=== PATIENT | female | born 1950 | race Caucasian/White ===

== ENCOUNTER 2016-06-28 15:10 | Day surgery (SDC) | payer MEDICARE, MEDICAID ==
[2012-12-02 15:24] VITALS: BP 110/60
[~2016-06-28 15:10] MED LIST: NORMAL SALINE 1,000 ML IV ONE; NORMAL SALINE 1,000 ML IV PRN
--- NOTE | 2016-06-28 15:23 | OR ---
Operative Report - Dictated Report Narrative: Location: Main OR Anesthesia: General Surgeon: Dr. 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 Bladder tumor Procedure: #1 Cystoscopy with bladder washing for cytology and Bilateral retrograde pyelograms #2 cold cut biopsy of apparent bladder tumor, multifocal Indications: 66-year-old female with worsening creatinine and new right hydroureteronephrosis seen on ultrasound. Discussed options and elected to proceed with above-mentioned procedure to investigate cause of obstruction and potentially treat. Description: Consent obtained. Patient brought to the operating room where general endotracheal anesthesia was induced. Placed in the dorsal lithotomy position. Prepped and draped. Timeout taken. Rigid cystoscope introduced into the bladder. Residual is negligible, patient empties well. Richardson cystoscopy revealed no evidence of infection however patient has multifocal what appears to be low-grade TCC in several areas. Total surface area is well over 5 cm but it is not bulky tumor. Mainly on the right side. Bilateral retrogrades obtained and interpreted by Dr. Fuller. Left ureter identified intubated with 5 Belgian catheter and left retrograde obtained. 10 mL of Isovue were used to obtain retrograde. Distal mid and proximal ureter were delicate without filling defects or hydronephrosis. At the level of the UPJ there is an obvious jet consistent with congenital UPJ obstruction. Left renal pelvis capacious/slightly dilated with mild hydronephrosis but there is preservation of the calyces. Upon removal of catheter there is delayed drainage through the UPJ. This side was not as significant in terms of the dilation as the opposite side but I do think this is a congenital UPJ. There were no filling defects. Right ureter identified intubated with 5 Belgian catheter and right retrograde obtained. 10 mL's of Isovue were used to obtain retrograde. Distal mid proximal ureter delicate without filling defects or hydronephrosis. Similar jet present on this side indicative of likely UPJ obstruction. Hydronephrosis on this side moderate to severe. There is still some calyceal preservation but there is some blunting. There was contrast hang up again on this side. No obvious filling defects but based on volume of collecting system would be hard to see subtle filling defect on this side secondary to the UPJ. Attention was turned back to the bladder. Cold cut forceps were brought in and I biopsied one of the lesions and sent to pathology. Ideally I would've placed the right stent at this point however with the possibility of bladder cancer and no evidence of upper tract disease at this time I felt delaying stenting would be okay and preferred to not see the upper tracts. Specimen: Bladder washing for cytology. Bladder biopsy EBL: 5 ml Condition: tolerated procedure Important findings: Bilateral UPJ's suspect clinically significant right worse than left. Multifocal apparent low grade bladder cancer post biopsy. Follow-up: My plan is to obtain a MAG3 Lasix renal scan to truly document if obstructed or partially obstructed. We'll follow up with pathology but bladder cancer needs to be treated first via TURBT and intravesical chemotherapy. After that can consider stenting or more aggressive options for the bilateral UPJs versus conservative if there is no high-grade obstruction and patient prefers.
== END 2016-06-28 15:11 | disposition home or self-care (01) ==
LOC: AMB 15:10
PROVIDERS: ATTEND Urology
PROC: 0TBB8ZX Excision of Bladder, Via Natural or Artificial Opening Endoscopic, Diagnostic (ICD-10-PCS; 2016-06-28)
PROC: BT14ZZZ Fluoroscopy of Kidneys, Ureters and Bladder (ICD-10-PCS; 2016-06-28)
PROC: 3E1K88X Irrigation of Genitourinary Tract using Irrigating Substance, Via Natural or Artificial Opening Endoscopic, Diagnostic (ICD-10-PCS; 2016-06-28)
PROC: 0TBB8ZX Excision of Bladder, Via Natural or Artificial Opening Endoscopic, Diagnostic (ICD-10-PCS; principal; 2016-06-28 15:10)
DX: C67.9 Malignant neoplasm of bladder, unspecified (principal); N13.5 Crossing vessel and stricture of ureter without hydronephrosis; I13.0 Hypertensive heart and chronic kidney disease with heart failure and stage 1 through stage 4 chronic kidney disease, or unspecified chronic kidney disease; I50.30 Unspecified diastolic (congestive) heart failure; N18.3 Chronic kidney disease, stage 3 (moderate); D63.1 Anemia in chronic kidney disease; E78.5 Hyperlipidemia, unspecified; E03.9 Hypothyroidism, unspecified; K21.9 Gastro-esophageal reflux disease without esophagitis; F17.210 Nicotine dependence, cigarettes, uncomplicated; Z68.28 Body mass index [BMI] 28.0-28.9, adult

== ENCOUNTER 2016-07-12 12:23 | Day surgery (SDC) | payer MEDICARE, MEDICAID ==
[~2016-07-12 12:23] MED LIST changes: +DOXORUBICIN HCL IR PRN; +DOXORUBICIN HCL IV PRN; +METOCLOPRAMIDE HCL 5 MG/ML VIAL IV PRN; +MORPHINE SULFATE 2 MG/ML DISP.SYRIN IV PRN; -NORMAL SALINE 1,000 ML IV ONE; +ONDANSETRON HCL/PF 2 MG/ML VIAL IV PRN; +WATER FOR INJECTION STERILE IR PRN; +oxyCODONE HCL/ACETAMINOPHEN 1 TAB TABLET PO PRN
--- OUTSIDE RECORDS SUMMARY | 2016-07-12 12:27 | XMS REPORT | Continuity of Care Document ---
:1950 Author Organization [facility] ([facility]) Address [address] [place] [address] Phone [phone] Care Team Providers Name Role Phone Flaquito Henson Primary Care Provider [phone] Source Comments This disclosure is being made pursuant to the Care Everywhere program, applicable federal and state laws, and may not contain all informaitonavailable regarding this patient.[facility] ([facility]) Active Allergies and Adverse Reactions Allergen Noted Date Severity Reactions Comments Iodine Respiratory Distress,Urticaria (Hives) Penicillins Urticaria (Hives) Current Medications Not on file Active Problems Problem Noted Date Unspecified hypothyroidism 08/23/2000 Most Recent Encounters Date Type Specialty Providers Description 05/16/2016 Office Visit Orthopaedic Javier Harley MD Chief Comp: Patient Reported Reason For Visit Social History Tobacco Use Types Packs/Day Years Used Date Never Assessed Last Filed Vital Signs Vital Sign Reading Time Taken Blood Pressure 127/64 06/24/2005 12:00 PM 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 Pulse 64 06/24/2005 12:00 PM 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 Temperature 36.4 C (97.52 F) 06/24/2005 12:00 PM 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 Respiratory Rate 16 06/24/2005 12:00 PM 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 Height - - Weight 96.798 kg (213 lb 6.4 oz) 08/23/2000 9:36 AM 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 Body Mass Index - - Oxygen Saturation - - Plan of Care Date Type Specialty Providers Description 08/01/2016 Wait List Orthopaedic 08/01/2016 Appointment Orthopaedic Javier Harley MD [address] [place] [address] [phone] (Fax) Chief Comp: Patient Estela Le MD [address] [place] [address] [phone] (Fax) Reported Reason For Visit Health Maintenance Due Date Last Done Comments HCV Screening 1950 Hepatitis B Vaccine (1 of 3 - Primary 1950 Series) Tdap Vaccine 1961 Td Vaccine 02/15/1968 Colonoscopy 2000 Mammogram 08/23/2001 08/23/2000 Lipid Disorder Screening 01/25/2005 01/26/2000, 11/09/1999 Zoster Vaccine 2010 Osteoporosis Screening (DXA Bone Density) 2015 Pneumococcal Vaccine (1 of 2 - PCV13) 2015 Influenza Vaccine: Seasonal (#1) 12/27/2015 Results from Last 3 Months Not on file
--- OUTSIDE RECORDS SUMMARY | 2016-07-12 12:27 | XMS REPORT | Summary of Care ---
:1950 Author Organization [facility] Address [address] [place] [address] Care Team Providers Name Role Phone Jason Catalan Primary Care Physician Encounter Date(s): 06/28/16 - 06/28/16 [facility], [address] [place], [place] [address] Discharge Diagnosis: CKD stage 3 Discharge Diagnosis: Other hydronephrosis Discharge Disposition: 01 Discharged to Home or Self Care Attending Physician: Emmanuel Fuller MD Referring Physician: NOE Canada Vital Signs Most recent to oldest [Reference Range]: 1 Blood Pressure [90-130/60-90 mmHg] 148/78mmHg *HI* (06/28/16 12:37 PM) Mean Arterial Pressure, Cuff 101 mmHg (06/28/16 12:37 PM) Most recent to oldest [Reference Range]: 1 Height/Length Measured 173 cm (06/28/16 12:37 PM) Weight Dosing 86 kg (06/28/16 12:37 PM) Problem List Condition Effective Dates Status Health Status Informant Anemia(Confirmed) Active Anemia of chronic renal Active failure(Confirmed) B12 deficiency(Confirmed) Active CFS (chronic fatigue Active syndrome)(Confirmed) Chronic low back pain(Confirmed) Active CKD stage 3(Confirmed) Active Depression(Confirmed) Active Diastolic heart failure(Confirmed) Active Edema(Confirmed) Active Fibromyalgia(Confirmed) Active GERD - Gastro-esophageal reflux Active disease(Confirmed) Other hydronephrosis(Confirmed) Active Hyperlipidemia(Confirmed) Active Hypertension(Confirmed) Active Hypokalemia(Confirmed) Active Hypothyroidism(Confirmed) Active 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) Narcolepsy(Confirmed) Active Osteoarthritis(Confirmed) Active Chronic leg pain(Confirmed) Active Peripheral neuropathy(Confirmed) Active Allergies, Adverse Reactions, Alerts Substance Reaction Severity Status contrast media (iodine-based) Anaphylactic reaction Active penicillin rash Active Medications cefuroxime 500 mg oral tablet 1 tab(s), Oral, BID, # 28 tab(s), 0 Refill(s), Start Date: 06/28/16 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:00 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 Start Date: 06/28/16 Stop Date: 07/12/16 Status: Orderedcholecalciferol 1000 intl units oral tablet 1 tab(s), Oral, Daily, # 30 tab(s), 6 Refill(s), Start Date: 09/09/15 14:55:00 CDT, Pharmacy: [facility],[place], [place] Start Date: 09/09/15 Status: OrderedClaritin 10 mg oral tablet 1 tab(s), Oral, Daily, # 7 tab(s), 0 Refill(s), Start Date: 11/03/14 16:18:00 CDT Start Date: 11/03/14 Stop Date: 11/10/14 Status: Orderedcyanocobalamin 1000 mcg/mL injectable solution 1 mL, IM, qMonth, # 30 mL, 0 Refill(s), Start Date: 11/03/14 16:18:00 CDT Start Date: 11/03/14 Status: OrderedCymbalta 60 mg oral delayed release capsule 1 cap(s), Oral, Daily, do not crush or chew, 0 Refill(s), Start Date: 11/03/14 16:19:00 CDT Special Instructions: do not crush or chew Start Date: 11/03/14 Stop Date: 03/07/16 Status: Completedcyproheptadine mg, Oral, TID, 0 Refill(s), Start Date: 11/03/14 16:19:00 CDT Start Date: 11/03/14 Status: Ordereddiazepam 5 mg oral tablet 1 tab(s), Oral, BID, 0 Refill(s), Start Date: 11/03/14 16:20:00 CDT Start Date: 11/03/14 Stop Date: 09/09/15 Status: Discontinuedferrous sulfate 325 mg (65 mg elemental iron) oral tablet 1 tab(s), Oral, BID, # 60 tab(s), 5 Refill(s), Start Date: 07/26/15 8:39:32 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 , Pharmacy: [place], [place] Start Date: 07/26/15 Status: Orderedferrous sulfate 325 mg (65 mg elemental iron) oral tablet 1 tab(s), Oral, BID, # 60 tab(s), 5 Refill(s), Start Date: 02/02/15 16:13:00 CDT , Pharmacy: [place], [place] Start Date: 02/02/15 Stop Date: 07/26/15 Status: Completedfolic acid 1 mg oral tablet 1 tab(s), Oral, Daily, # 30 tab(s), 0 Refill(s), Start Date: 11/03/14 16:20:00 CDT Start Date: 11/03/14 Status: OrderedLasix 80 mg oral tablet 1 tab(s), Oral, BID, # 30 tab(s), 0 Refill(s), Start Date: 11/03/14 16:20:00 CDT Start Date: 11/03/14 Status: Orderedlevothyroxine 75 mcg (0.075 mg) oral tablet 1 tab(s), Oral, Daily, # 30 tab(s), 0 Refill(s), Start Date: 11/03/14 16:21:00 CDT Start Date: 11/03/14 Status: OrderedLidoderm 5% topical film patch(es), Topical, Daily, 0 Refill(s), Start Date: 11/03/14 16:21:00 CDT Start Date: 11/03/14 Status: OrderedLipitor 20 mg oral tablet 1 tab(s), Oral, Daily, # 30 tab(s), 0 Refill(s), Start Date: 11/03/14 16:21:00 CDT Start Date: 11/03/14 Stop Date: 03/07/16 Status: CompletedLyrica 150 mg oral capsule 1 cap(s), Oral, BID, 0 Refill(s), Start Date: 11/03/14 16:21:00 CDT Start Date: 11/03/14 Status: OrderedNasonex 50 mcg/inh nasal spray 2 spray(s), Nasal, Daily, # 17 gm, 0 Refill(s), Start Date: 11/03/14 16:22:00 CDT Start Date: 11/03/14 Status: Orderedpantoprazole 40 mg oral delayed release tablet 1 tab(s), Oral, Daily, # 30 tab(s), 0 Refill(s), Start Date: 11/03/14 16:22:00 CDT Start Date: 11/03/14 Status: OrderedPercocet 5/325 oral tablet See Instructions, Take 1 tab by mouth 1 hour prior to Bone Marrow biopsy. May repeat x1 later in day if needed.l, # 2 tab(s), 0 Refill(s), Start Date: 14:54:00 CDT Special Instructions: Take 1 tab by mouth 1 hour prior to Bone Marrow biopsy. May repeat x1 later in day if needed.l Start Date: 11/25/14 Stop Date: 03/07/16 Status: Completedphentermine 37.5 mg oral tablet 1 tab(s), Oral, Daily, 0 Refill(s), Start Date: 11/03/14 16:22:00 CDT Start Date: 11/03/14 Status: Orderedpotassium chloride 20 mEq oral tablet, extended release 1 tab(s), Oral, TID, 0 Refill(s), Start Date: 11/03/14 16:24:00 CDT Start Date: 11/03/14 Status: OrderedProvigil 200 mg oral tablet 1 tab(s), Oral, qAM, # 30 tab(s), 0 Refill(s), Start Date: 11/03/14 16:24:00 CDT Start Date: 11/03/14 Status: OrderedSingulair 10 mg oral tablet 1 tab(s), Oral, qPM, # 30 tab(s), 0 Refill(s), Start Date: 11/03/14 16:25:00 CDT Start Date: 11/03/14 Status: OrderedTemovate 0.05% topical cream 1 rasta, Topical, BID, # 15 gm, 0 Refill(s), Start Date: 11/03/14 16:25:00 CDT Start Date: 11/03/14 Status: OrderedToviaz 8 mg oral tablet, extended release tab(s), Oral, Daily, 0 Refill(s), Start Date: 11/03/14 16:25:00 CDT Start Date: 11/03/14 Stop Date: 03/07/16 Status: CompletedtraMADol 50 mg oral tablet 2 tab(s), Oral, q12hr, PRN for pain, # 60 tab(s), 0 Refill(s), Start Date: 11/03 16:25:00 CDT Start Date: 11/03/14 Status: Orderedtriamcinolone 55 mcg/inh nasal spray 2 spray(s), Nasal, Daily, # 10 gm, 0 Refill(s), Start Date: 11/03/14 16:25:00 CDT Start Date: 11/03/14 Stop Date: 03/07/16 Status: CompletedTriCor 145 mg oral tablet 1 tab(s), Oral, Daily, # 30 tab(s), 0 Refill(s), Start Date: 11/03/14 16:26:00 CDT Start Date: 11/03/14 Status: OrderedVESIcare 10 mg oral tablet 1 tab(s), Oral, Daily, # 30 tab(s), 0 Refill(s), Start Date: 03/07/16 14:42:00 CDT Start Date: 03/07/16 Status: OrderedXanax 0.25 mg oral tablet See Instructions, Take 1 tablet by mouth 1 hour prior to Bone marrow biopsy., # 1 tab(s), 0 Refill(s), Start Date: 11/25/14 14:54:00 CDT Special Instructions: Take 1 tablet by mouth 1 hour prior to Bone marrow biopsy. Start Date: 11/25/14 Stop Date: 09/09/15 Status: Discontinued Results No data available for this section Immunizations No data available for this section Procedures Procedure Date Related Diagnosis Body Site Colonoscopy 03/04/12 Esophagogastroduodenoscopy 03/04/12 Arthroscopic knee operation1 11/13/06 Cataract surgery 2005 Tubal ligation 1979 Complete salpingo-oophorectomy 1972 Cholecystectomy Reattachment of retina 1BILATERAL Social History No data available for this section Assessment and Plan No data available for this section
--- OUTSIDE RECORDS SUMMARY | 2016-07-12 12:28 | XMS REPORT | Summary of Care ---
:1950 Author Organization [facility] Address [address] [place] [address] Care Team Providers Name Role Phone Jason Catalan Primary Care Physician Encounter Date(s): 06/28/16 - 06/28/16 [facility], [address] [place], [place] [address] Discharge Disposition: 01 Discharged to Home or Self Care Attending Physician: Emmanuel Fuller MD Referring Physician: Emmanuel Fuller MD Vital Signs No data available for this section Problem List Condition Effective Dates Status Health [...] tab(s), 0 Refill(s), Start Date: 06/28/16 12:45:00 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 Start Date: 06/28/16 Stop Date: 07/12/16 Status: Orderedcholecalciferol 1000 intl units oral tablet 1 tab(s), Oral, Daily, # 30 tab(s), 6 Refill(s), Start Date: 09/09/15 14:55:00 CDT, Pharmacy: [facility] [place], [place] Start Date: 09/09/15 Status: OrderedClaritin 10 [...] tab(s), 5 Refill(s), Start Date: 07/26/15 8:39:32 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 , Pharmacy: [facility] [place], [place] Start Date: 07/26/15 Status: Orderedferrous sulfate 325 mg (65 mg elemental iron) oral tablet 1 tab(s), Oral, BID, # 60 tab(s), 5 Refill(s), Start Date: 02/02/15 16:13:00 CDT , Pharmacy: [facility] [place], [place] Start Date: 02/02/15 Stop Date: 07/26/15 [...]
[2016-07-12] MEDS ORDERED: NORMAL SALINE 1,000 ML IV ONE (13:39)
--- NOTE | 2016-07-12 15:09 | OR ---
Operative Report - Dictated Report Narrative: Location: Main OR Anesthesia: General Preoperative diagnosis: Multifocal bladder cancer Postoperative diagnosis: same Procedure: #1 TURBT Large >5cm #2 Insertion of geronimo catheter Indications: 66-year-old female with acute renal failure discovered to have bilateral hydronephrosis with suspicion of bilateral UPJs confirmed with MAG3 Lasix renal scan to be clinically significant who during cystoscopic investigation was noticed to have multifocal low-grade appearing bladder cancer. Biopsy confirms TA G1 bladder cancer involving significant portion of right lateral wall of the bladder. Not big and bulky but definitely multifocal and superficial. Presents today for resection and potential intravesical chemotherapy. Description: Informed consent obtained. Risks and benefits discussed. Patient brought to the operating room where general endotracheal anesthesia was induced. Placed in the dorsal lithotomy position. Prepped and draped. Timeout taken per protocol. Scope introduced and navigated towards the bladder. Tumor involved right lateral wall extending above the ureteric orifice but lateral to , multiple small heaped up areas with other field/mucosal change in her spurs throughout. It extended distally to just about the bladder neck. There is no big bulky tumor but total surface area well over 5 cm in definite multi focality. Some of it is very difficult to see. Resectoscope was brought in and resection was carried out. There is not a lot of tissue and a lot of the surgery was performed using vaporization with the loop although I did resect some tissue. Near the ureter care was taken to use minimal cautery. Ureter itself on the right is not involved with the tumor does get close. Hemostasis was ensured and chips were evacuated. Final inspection of entire bladder revealed no remaining abnormal tissue. All visible tumor gone. I went ahead and fulgurated additional mucosa that was located in between multifocal tumor as I do believe the superficial mucosa is involved almost CIS-like. EBL: 0 cc Specimen: Resected bladder tumor Condition: tolerated Important findings: Multifocal low-grade appearing small bulk bladder cancer. No involvement of the right ureteric orifice. I will assess patient in recovery for intravesical Adriamycin/mitomycin. FOLLOW UP: She will see me next week. Need to figure out what the best route is for her bilateral UPJs as I do believe they are clinically significant based on her underlying renal impairment, occasional symptomatology and MAG3 Lasix renal scan.
--- NOTE | 2016-07-12 15:11 | PROC NOTE ---
ED Procedures - Additional Procedures Progress: Location: Recovery Anesthesia: None Preoperative diagnosis: Bladder cancer Postoperative diagnosis: Same Procedure: Intravesical instillation of Adriamycin per protocol Indications: 66-year-old female with multifocal TCC biopsy proven. She is post resection. Abdominal exam negative. Urine pretty clear. Intravesical chemotherapy indicated to decrease risk of implantation and help prevent recurrence. Description: Abdominal exam benign. Urine was clear. Addy syringe was used to introduce Adriamycin. Catheter clamped. She will undergo 45-60 minute dwell time followed by rinsed per protocol followed by removal of catheter.
[2016-07-12 18:49] VITALS: BP 111/70
== END 2016-07-12 12:24 | disposition home or self-care (01) ==
LOC: AMB 12:23
PROVIDERS: ATTEND Urology
PROC: 0TBB8ZX Excision of Bladder, Via Natural or Artificial Opening Endoscopic, Diagnostic (ICD-10-PCS; principal; 2016-07-12 14:15)
DX: C67.2 Malignant neoplasm of lateral wall of bladder (principal); I13.0 Hypertensive heart and chronic kidney disease with heart failure and stage 1 through stage 4 chronic kidney disease, or unspecified chronic kidney disease; N18.3 Chronic kidney disease, stage 3 (moderate); I50.30 Unspecified diastolic (congestive) heart failure; E03.9 Hypothyroidism, unspecified; D63.1 Anemia in chronic kidney disease; K21.9 Gastro-esophageal reflux disease without esophagitis; F32.9 Major depressive disorder, single episode, unspecified; F17.210 Nicotine dependence, cigarettes, uncomplicated; Z68.28 Body mass index [BMI] 28.0-28.9, adult
CPT/HCPCS: 52240; 88305; J9000

== ENCOUNTER 2016-10-04 12:07 | Day surgery (SDC) | payer MEDICARE, MEDICAID ==
[~2016-10-04 12:07] MED LIST changes: -DOXORUBICIN HCL IR PRN; -DOXORUBICIN HCL IV PRN; +OXYBUTYNIN CHLORIDE 5 MG TABLET PO PRN; -WATER FOR INJECTION STERILE IR PRN
--- OUTSIDE RECORDS SUMMARY | 2016-10-04 12:11 | XMS REPORT | Continuity of Care Document ---
:1950 Author Organization [facility] ([facility]) Address [address] [place] [address] Phone [phone] Care Team Providers Name Role Phone Flaquito Henson Primary Care Provider [phone] Source Comments This disclosure is being made pursuant to the Care Everywhere program, applicable federal and state laws, and may not contain all informaitonavailable regarding this patient.[facility] ([facility]) Active Allergies and Adverse Reactions Allergen Noted Date Severity Reactions Comments Iodine Respiratory Distress,Urticaria (Hives) Penicillins Urticaria (Hives) Current Medications Not on file Active Problems Problem Noted Date Unspecified hypothyroidism 08/23/2000 Most Recent Encounters Date Type Specialty Providers Description 08/01/2016 Office Visit Orthopaedic Javier Harley MD Chief Comp: Patient Estela Le MD Reported Reason For Visit Social History Tobacco Use Types Packs/Day Years Used Date Never Assessed Last Filed Vital Signs Vital Sign Reading Time Taken Blood Pressure 127/64 06/24/2005 12:00 PM CAPTAIN/CHECK AIRMAN Pulse 64 06/24/2005 12:00 PM CAPTAIN/CHECK AIRMAN Temperature 36.4 C (97.52 F) 06/24/2005 12:00 PM CAPTAIN/CHECK AIRMAN Respiratory Rate 16 06/24/2005 12:00 PM CAPTAIN/CHECK AIRMAN Height - - Weight 96.798 kg (213 lb 6.4 oz) 08/23/2000 9:36 AM CAPTAIN/CHECK AIRMAN Body Mass Index - - Oxygen Saturation - - Plan of Care Health Maintenance Due Date Last Done Comments [...]
--- NOTE | 2016-10-04 14:13 | OR ---
Operative Report - Dictated Report Narrative: Location: Main OR Anesthesia: Mac/IV sedation Surgeon: Dr. 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 Practically healed bladder with the exception of one area that had a white fibrinous material. Bilateral retrogrades consistent with bilateral UPJ. Right retrograde very abnormal on injection with filling defect type appearance that looked like multiple stones piled up at the level of the UPJ however patient had prior CT without stones. Abnormality did not persist once I had the yellow catheter up above the UPJ and continued with the retrograde. Not sure what to make of it. Procedure: #1 Cystoscopy with bladder washing for cytology and culture. #2 Bilateral retrograde pyelograms with placement of left 6 by multi length and right 5 by multi length double-J stents #3 cold cut biopsy of abnormal bladder lesion/prior resection site Indications: 66-year-old female with chronic back pain discovered to have bilateral hydronephrosis however on cystoscopy also had multifocal TA G1 bladder cancer. Patient underwent successful resection followed by induction BCG. 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 Prior renal scan was consistent with high grade obstruction however renal function is impaired making interpretation a little tricky Description: Consent obtained. Patient brought to the operating room where Vincent was induced. Placed in the dorsal lithotomy position. Prepped and draped. Timeout taken. Rigid cystoscope introduced into the bladder with ease and quick cystoscopy revealed no recurrent tumor, stone or suspicious lesions. There was a little area of white fluff which is not uncommon with healing after resection. Washing was obtained sent for cytology and culture. Bilateral retrogrades obtained and interpreted by Dr. Fuller. Left ureter identified intubated with 5 Mongolian catheter and left retrograde obtained. Distal mid and proximal ureter delicate without hydronephrosis or filling defects. UPJ with classic jet followed by hydronephrotic left kidney with some blunting of the calyces.. There were no filling defects. Solo wire advanced all the way up to the kidney without incident. Over the scope 6 by multi length double-J stent introduced however ureteral caliber such that it was snug all the way up. With slow constant pressure, wire on tension and scope over the ureter I was able to get the stent to curl proximally and successfully deployed the stent. Right ureter identified intubated with 5 Mongolian catheter and right retrograde obtained. Distal, mid and proximal ureter delicate without filling defects. On this side the UPJ was much tighter with a much tighter jet and a very abnormal filling defect type appearance as the contrast navigated and what appeared to be a hydronephrotic collecting system. It truthfully looked like a collection of small stones however on prior CT no stones present. I advanced the wire past this area into the kidney and then advanced the [address] all the way up. I aspirated urine it was clear and not consistent with infection and I injected a bunch more contrast but could not re-create that appearance that I saw with the 5 Mongolian catheter below the UPJ. I pulled the 5 Mongolian catheter below the UPJ again injected and saw similar filling defect type appearance. Not sure as to clinical significance but I do have some concern. Given how snug the 6 Mongolian stent was on the opposite side I elected to place a 5 by multi length stent which was done after the Solo wire was replaced. Both stents were appropriately position confirmed on fluoroscopy. 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 Attention was turned back to the bladder to the area where the fibrinous material was. I removed that using cold cut forceps and underneath the mucosa looked okay but not as normal as the rest of the bladder. Given the prior multifocal nature of her TCC I elected to obtain a couple biopsies in that area and sent those to pathology to ensure no recurrent cancer. Specimen: Washing for cytology and culture. Cold cut biopsy of bladder lesion EBL: 0 ml Condition: tolerated procedure Important findings: Bilateral UPJs. Very abnormal filling defect on the right. Successful stenting. Well-healed bladder without obvious recurrence from a TCC standpoint. Biopsies and washings to confirm. Follow-up: One week with ultrasound, UA and creatinine.
[2016-10-04 15:30] VITALS: BP 148/72
== END 2016-10-04 12:08 | disposition home or self-care (01) ==
LOC: AMB 12:07
PROVIDERS: ATTEND Urology
PROC: 0T788DZ Dilation of Bilateral Ureters with Intraluminal Device, Via Natural or Artificial Opening Endoscopic (ICD-10-PCS; 2016-10-04)
PROC: 0TBB8ZX Excision of Bladder, Via Natural or Artificial Opening Endoscopic, Diagnostic (ICD-10-PCS; 2016-10-04)
PROC: 0WHR8YZ Insertion of Other Device into Genitourinary Tract, Via Natural or Artificial Opening Endoscopic (ICD-10-PCS; 2016-10-04)
PROC: BT14ZZZ Fluoroscopy of Kidneys, Ureters and Bladder (ICD-10-PCS; 2016-10-04)
PROC: 0TBB8ZX Excision of Bladder, Via Natural or Artificial Opening Endoscopic, Diagnostic (ICD-10-PCS; principal; 2016-10-04 13:20)
DX: N13.30 Unspecified hydronephrosis (principal); I13.0 Hypertensive heart and chronic kidney disease with heart failure and stage 1 through stage 4 chronic kidney disease, or unspecified chronic kidney disease; N18.3 Chronic kidney disease, stage 3 (moderate); I50.30 Unspecified diastolic (congestive) heart failure; D63.1 Anemia in chronic kidney disease; K21.9 Gastro-esophageal reflux disease without esophagitis; M79.7 Fibromyalgia; E78.5 Hyperlipidemia, unspecified; E03.9 Hypothyroidism, unspecified; F17.210 Nicotine dependence, cigarettes, uncomplicated; Z85.51 Personal history of malignant neoplasm of bladder; Z68.28 Body mass index [BMI] 28.0-28.9, adult

== ENCOUNTER 2016-12-05 16:43 | Observation (INO) | payer MEDICARE, MEDICAID ==
--- NOTE | 2016-12-05 17:14 | ERNOTE ---
Medical Problem HPI - General Chief Complaint: General Assessment Time Seen by Provider: 12/05/16 16:45 Source: patient Exam Limitations: no limitations - Immun/Allergies/Home Medications Immunizations: IMMUNIZATION HX Immunizations Up to Date Yes History of Influenza Vaccine Yes Hx Pneumococcal Vaccination Yes Allergies/Adverse Reactions: Allergies Iodinated Contrast Media - Oral and [Iodinated Contrast Media - IV Dye] Allergy (Severe, Verified 10/04/16 12:46) Anaphylaxis Penicillins Adverse Reaction (Mild, Verified 10/04/16 12:46) RASH Home Medications: HOME MEDICATIONS Cholecalciferol [Vitamin D] 1,000 unit PO DAILY 06/27/16 [Last Taken Unknown] Cyanocobalamin (Vitamin B-12) [B-12 Kit] 1,000 mcg IJ Q30D 06/27/16 [Last Taken Unknown] Ferrous Sulfate [Iron] 325 mg PO BID 06/27/16 [Last Taken Unknown] Furosemide [Lasix] 160 mg PO BID 06/27/16 [Last Taken Unknown] Levothyroxine Sodium [Synthroid] 75 mcg PO DAILY 06/27/16 [Last Taken 10/04/16] Loratadine [Claritin] 10 mg PO DAILY 06/27/16 [Last Taken Unknown] Modafinil [Provigil] 200 mg PO QAM 06/27/16 [Last Taken Unknown] Mometasone Furoate [Nasonex] 2 spray NS DAILY 06/27/16 [Last Taken Unknown] Montelukast Sodium [Singulair] 10 mg PO QPM 06/27/16 [Last Taken Unknown] Pantoprazole Sodium 40 mg PO DAILY 06/27/16 [Last Taken Unknown] Phentermine HCl [Adipex-P] 37.5 mg PO DAILY 06/27/16 [Last Taken Unknown] Pregabalin [Lyrica] 150 mg PO BID 06/27/16 [Last Taken Unknown] Solifenacin Succinate [Vesicare] 10 mg PO DAILY 06/27/16 [Last Taken Unknown] traMADol HCL [Ultram] 100 mg PO Q12H PRN 07/03/16 [Last Taken Unknown] Calcitriol [Rocaltrol] 0.25 mcg PO DAILY 10/03/16 [Last Taken Unknown] Fenofibrate Nanocrystallized [Tricor] 145 mg PO DAILY 10/03/16 [Last Taken Unknown] Folic Acid 2 mg PO DAILY 10/03/16 [Last Taken Unknown] Potassium Chloride [K-Dur] 20 meq PO TID 10/03/16 [Last Taken Unknown] Clotrimazole [Itch Relief] 15 gm TP DAILY 12/05/16 [Last Taken Unknown] Spironolact/Hydrochlorothiazid [Aldactazide 50-50 Tablet] 0.5 each PO DAILY 04/13 [Last Taken Unknown] - History of Present History Narrative: Patient has a history of multifocal bladder cancer post resection and chemotherapy. Patient was found to have bilateral hydronephrosis which was treated with bilateral stent placement, follow up renal scan did not show any improvement of the hydronephrosis and patient was referred to the [facility] nephrology. She was seen there on 12/01/16 and preprocedure labs showed a hemoglobin of 5.9. Patient was called and told to go to ER. PAtient has been lightheaded and fatigued, denies chest pain or syncope. She has a history of anemia, has not needed any transfusion in years. She denies any bleeding or dark stools Review of Systems - Review of Systems Constitutional: Present: fatigue, malaise. Absent: fever, chills EYE: Absent: eye pain ENT: Absent: sore throat Respiratory: Present: shortness of breath - 'only when I hurry' Cardiology: Absent: chest pain Gastrointestinal/Abdominal: Absent: nausea, vomiting, abdominal pain Genitourinary: Present: no symptoms reported Neurological: Present: weakness - generalized. Absent: headache Hematologic/Lymphatic: Absent: easy bleeding - Patient's Past Medical History Patient History - Medical: Anemia, Anxiety, Arthritis, Chronic Pain, Depression , Fibromyalgia, GERD, Hypothyroidism, Osteoarthritis, Renal Disease, Other Patient History - Cardiac/Respiratory: Hyperlipidemia Patient History - Cancer: Bladder, Chemotherapy history Patient History - Surgical Procedures: Cancer Surgery, Cataracts, Cholecystectomy, Colonoscopy, EGD, Tubal Ligation, T & A, Other, Orthopedic, Urology Patient History - Other: None LMP (females 10-50): Menopausal - Family History Mother Family History - Medical: Diabetes Type 2 Family History - Cardiac/Respiratory: No pertinent hx Family History - Cancer: No pertinent family hx Father Family History - Medical: , No pertinent hx Family History - Cardiac/Respiratory: CHF Family History - Cancer: Bladder - Social History Living Situations: home Abuse History: No History of abuse Psych History: Hx of Anxiety, Hx of Depression, Current tx/ever been on anti- depressants or anti-anxiety meds Smoking Status: Current every day smoker Cigarettes Packs Per Day: 1 Have you smoked in the past 12 months: Yes Do you dip or chew tobacco: No Patient requests Smoking Cessation Consult: No Initiate information on Smoking Cessation: No Alcohol Use: none Drug Use: none - Immunizations Immunizations Up to Date: Yes Hx Pneumococcal Vaccination: Yes History of Influenza Vaccine: Yes Physical Exam - Physical Exam General Appearance: Present: wd/wn, alert, no apparent distress Head Exam: Present: normal inspection Eye Exam: Normal inspection: bilateral, PERRL: bilateral Ears, Nose, Throat: Present: normal ENT inspection, other - pale mucus membranes Respiratory: Present: no respiratory distress, normal breath sounds, no accessory muscle use, lungs clear Cardiovascular/Chest: Present: regular rate, rhythm Gastrointestinal/Abdominal: Present: nontender, nondistended, soft Extremity Exam: Present: pedal edema - chronic, wearing zip up compression stockings Neurological Exam: Present: alert, oriented, normal mood/affect Skin Exam: Present: warm/dry, pallor ED Progress - Vital Signs Patient's Vital Signs:: I have reviewed the patient's vital signs. Vital Signs: Vital Signs 12/05/16 16:46 Temperature 36.6 C Pulse Rate 90 Respiratory 12 Rate Blood Pressure 137/51 O2 Sat by Pulse 97 Oximetry - Progress/Reassessment Chief Complaint: General Assessment Progress Note-Subjective: 12/05/16 18:00 discussed results with patient, recommended admission for transfusion, patient possibly has CHF (though she denies history) as she is taking high dose lasix, will need slow transfusion and lasix in between, BUN/ Creat stable elevated 12/05/16 18:[address] Henson, jaydenay to admit for observation to transfuse, give lasix after first dose Departure - Departure Clinical Impression: Severe anemia Disposition: [facility] Condition: Good
[2016-12-05 17:24] LABS: Mean Cell Volume 99.4 fl (78-100); Mean Corpuscular Hemoglobin 31.7 pg (27-31); Mean Corpuscular Hgb Conc 31.9 g/dl (32-36); Mean Platelet Volume 12.2 fl (6.0-9.5); Neutrophil # 2.3 K/mm3 (1.3-6.0); Neutrophil % 58.2 % (42-75.0); Platelet Count 140 K/mm3 (150-450); Red Blood Count 1.64 M/mm3 (4.2-5.4); Red Cell Distribution Width 12.3 % (11.5-14.0); White Blood Count 3.9 K/mm3 (4.0-10.5)
[2016-12-05 17:26] LABS: Hematocrit 16.3 % (37.0-47.0); Hemoglobin 5.2 gm/dL (12.5-16.0)
[2016-12-05 17:36] LABS: Albumin * 2.9 gm/dl (3.4-5.0); BUN/Creatinine Ratio 11.5 (9.0-21.6); Bilirubin, Total 0.3 mg/dL (0.0-1.1); Ca. Corrected For Albumin 8.7 mg/dL (8.4-10.2); Calcium * 8.1 mg/dL (7.9-10.9); Total Protein 6.1 gm/dL (6.2-8.2)
--- NOTE | 2016-12-05 19:19 | HP ---
<SusannahLaura - Last Filed: 12/05/16 19:19> Chief Complaint - Chief Complaint Date of Service: 12/05/16 Time of Service: 19:14 Chief Complaint: Low hemoglobin History of Present Illness: Ms. Barahona is a 66 y/o female who presented to the ER today with complaints of severe anemia. She has a history of multifocal bladder cancer which is in remission. She had treatment last week. She was noted to have bilateral hydronephrosis which was treated with bilateral stent placement. Unfortunately, this did not correct the problem and she was referred to [facility] Neph[facility]. She had preprocedure labs which showed a hgb of 5.9. She was instructed to contact her provider. Ms. Barahona initially was not concerned because she had no symptoms--no black, tarry stools, no SOB, no chest pain, no lightheadedness or dizziness upon standing. Her most pressing complaint is pain and edema in the BLE. She is on furosemide 160 mg po BID. In the ER, labs are remarkable for a hgb of 5.2, cr. 3.4. She is not tachycardic, not hypotensive. She is referred for observation for treatment of severe anemia. - Patient's Past Medical History Patient History - Medical: Anemia, Anxiety, Arthritis, Chronic Pain, Depression , Fibromyalgia, GERD, Hypothyroidism, Osteoarthritis, Renal Disease, Other - Narcolepsy Patient History - Cardiac/Respiratory: Hyperlipidemia Patient History - Cancer: Bladder, Chemotherapy history Patient History - Surgical Procedures: Cancer Surgery, Cataracts, Cholecystectomy, Colonoscopy, EGD, Tubal Ligation, T & A, Other, Orthopedic, Urology Patient History - Other: None LMP (females 10-50): Menopausal - Family History Mother Family History - Medical: Diabetes Type 2 Family History - Cardiac/Respiratory: No pertinent hx Family History - Cancer: No pertinent family hx Father Family History - Medical: , No pertinent hx Family History - Cardiac/Respiratory: CHF Family History - Cancer: Bladder - Social History Living Situations: alone Abuse History: No History of abuse Psych History: Hx of Anxiety, Hx of Depression, Current tx/ever been on anti- depressants or anti-anxiety meds Smoking Status: Current every day smoker Cigarettes Packs Per Day: 1 Have you smoked in the past 12 months: Yes Do you dip or chew tobacco: No Patient requests Smoking Cessation Consult: No Initiate information on Smoking Cessation: No Alcohol Use: none Drug Use: none - Immunizations Immunizations Up to Date: Yes Hx Pneumococcal Vaccination: Yes History of Influenza Vaccine: Yes Review Of Systems (GEN) - Review of Systems Generalized/Overall Review: Present: Fatigue, Weight loss - Has been actively trying to lose weight. EENTM: Present: No Symptoms Reported Respiratory: Present: Shortness of Breath - With exertion Cardiac: Present: Edema Abdominal: Present: No Symptoms Reported Genitourinary: Present: No Symptoms Reported Musculoskeletal: Present: Other - Generalized pain in the bilateral legs. Neurological: Present: No Symptoms Reported Skin: Present: Other - Blisters on the BLE. Endocrine: Present: No Symptoms Reported Immunizations: IMMUNIZATION HX Immunizations Up to Date Yes History of Influenza Vaccine Yes Hx Pneumococcal Vaccination Yes Allergies/Adverse Reactions: Allergies Allergy/AdvReac Type Severity Reaction Status Date / Time Iodinated Contrast Media - Allergy Severe Anaphylaxis Verified 12/05/16 19:14 Oral and [Iodinated Contrast Media - IV Dye] Penicillins AdvReac Mild RASH Verified 12/05/16 19:14 Home Medications: HOME MEDICATIONS Cholecalciferol [Vitamin D] 1,000 unit PO DAILY 06/27/16 [Last Taken 12/05/16 09 :00] Cyanocobalamin (Vitamin B-12) [B-12 Kit] 1,000 mcg IJ Q30D 06/27/16 [Last Taken Unknown] Ferrous Sulfate [Iron] 325 mg PO BID 06/27/16 [Last Taken Unknown] Furosemide [Lasix] 160 mg PO BID 06/27/16 [Last Taken Unknown] Levothyroxine Sodium [Synthroid] 75 mcg PO DAILY 06/27/16 [Last Taken 12/05/16 09:00] Loratadine [Claritin] 10 mg PO DAILY 06/27/16 [Last Taken 12/05/16 09:00] Modafinil [Provigil] 200 mg PO QAM 06/27/16 [Last Taken 12/05/16 09:00] Mometasone Furoate [Nasonex] 2 spray NS DAILY 06/27/16 [Last Taken 12/05/16 09: 00] Montelukast Sodium [Singulair] 10 mg PO QPM 06/27/16 [Last Taken 12/04/16 21:00] Pantoprazole Sodium 40 mg PO DAILY 06/27/16 [Last Taken 12/05/16 09:00] Phentermine HCl [Adipex-P] 37.5 mg PO DAILY 06/27/16 [Last Taken Unknown] Pregabalin [Lyrica] 150 mg PO BID 06/27/16 [Last Taken 12/05/16 09:00] Solifenacin Succinate [Vesicare] 10 mg PO DAILY 06/27/16 [Last Taken 12/04/16 2100] traMADol HCL [Ultram] 100 mg PO Q12H PRN 07/03/16 [Last Taken Unknown] Calcitriol [Rocaltrol] 0.25 mcg PO DAILY 10/03/16 [Last Taken 12/05/16 09:00] Fenofibrate Nanocrystallized [Tricor] 145 mg PO DAILY 10/03/16 [Last Taken 12/05 09:00] Folic Acid 2 mg PO DAILY 10/03/16 [Last Taken 12/05/16 09:00] Potassium Chloride [K-Dur] 20 meq PO TID 10/03/16 [Last Taken 12/04/16 21:00] Clotrimazole [Itch Relief] 15 gm TP DAILY 12/05/16 [Last Taken 12/05/16 09:00] Spironolact/Hydrochlorothiazid [Aldactazide 50-50 Tablet] 0.5 each PO DAILY 04/13 [Last Taken 12/05/16 09:00] Exam - Exam Vital Signs: Vital Signs - Last Taken Temp 36.6 C 12/05/16 16:46 Pulse 84 12/05/16 18:17 Resp 12 12/05/16 18:17 BP 120/50 12/05/16 18:17 Pulse Ox 95 12/05/16 18:17 Constitutional: Present: Alert, Oriented x3, Cooperative, No distress, Looks Older than stated age ENT Exam: Present: normal ENT inspection, hearing grossly normal Eye Exam: bilateral eye: normal inspection Neck: Present: non-tender, full range of motion Back Exam: Present: normal inspection Breasts: Present: Exam deferred Respiratory: Present: crackles - Fine crackles in the LLL Cardiovascular/Chest: Present: regular rate, rhythm, systolic murmur - Grade 3, edema - 2+ BLE edema Peripheral Pulses: dorsalis-pedis (R): 2+, dorsalis-pedis (L): 2+ Abdomen: Present: Normal bowel sounds, soft, nontender, nondistended, no rebound tenderness /Rectal: Present: Exam deferred Extremity: Present: normal range of motion, lower extremity edema, leg pain, pedal edema Skin Exam: Present: pallor Lymphatic: Present: no adenopathy Neurologic: Present: front desk team member II-XII nml as tested, oriented x 3 Appearance: Present: appropriate appearance, appropriate insight, no memory impairment Eye contact: Present: cooperative, good eye contact, normal speech Thoughts: Present: normal thought pattern Diagnostic Studies: Laboratory Results WBC 3.9 K/mm3 (4.0-10.5) L 12/05/16 17:10 RBC 1.64 M/mm3 (4.2-5.4) L 12/05/16 17:10 Hgb 5.2 gm/dL (12.5-16.0) L* D 12/05/16 17:10 Hct 16.3 % (37.0-47.0) L* D 12/05/16 17:10 MCV 99.4 fl (78-100) 12/05/16 17:10 MCH 31.7 pg (27-31) H 12/05/16 17:10 MCHC 31.9 g/dl (32-36) L 12/05/16 17:10 RDW 12.3 % (11.5-14.0) 12/05/16 17:10 Plt Count 140 K/mm3 (150-450) L 12/05/16 17:10 MPV 12.2 fl (6.0-9.5) H 12/05/16 17:10 Immature Gran % (Auto) 0.30 % (0.001-0.429) 12/05/16 17:10 Immature Gran # (Auto) 0.01 K/mm3 (0.000-0.0310) 12/05/16 17:10 Neutrophils % 58.2 % (42-75.0) 12/05/16 17:10 Lymphocytes % 27.2 % (20-51) 12/05/16 17:10 Monocytes % 9.9 % (0.0-9) H 12/05/16 17:10 Eosinophils % 4.1 % (0.0-3.0) H 12/05/16 17:10 Basophils % 0.3 % (0.0-1.0) 12/05/16 17:10 Nucleated RBC % 0.0 k/mm3 (0-1) 12/05/16 17:10 Neutrophils # 2.3 K/mm3 (1.3-6.0) 12/05/16 17:10 Lymphocytes # 1.1 k/mm3 (1.5-3.5) L 12/05/16 17:10 Monocytes # 0.4 k/mm3 (0.0-1.0) 12/05/16 17:10 Eosinophils # 0.2 k/mm3 (0.0-0.7) 12/05/16 17:10 Absolute Basophils 0.0 k/mm3 (0.0-0.1) 12/05/16 17:10 Sodium 143 mmol/L (132-142) H 12/05/16 17:10 Plasma Sodium 144 mmol/L (130-142) H 12/05/16 17:10 Potassium 3.0 mmol/L (3.4-4.6) L 12/05/16 17:10 Chloride 107 mmol/L (97-106) H 12/05/16 17:10 Carbon Dioxide 24.0 mmol/L (24-32.6) 12/05/16 17:10 Anion Gap 15.0 mmol/L (6.8-13.8) H 12/05/16 17:10 BUN 37 mg/dL (3-23) H 12/05/16 17:10 Creatinine 3.22 mg/dL (0.4-1.4) H 12/05/16 17:10 Est GFR (Non-Af Amer) 15 mL/min (60-130) L 12/05/16 17:10 BUN/Creatinine Ratio 11.5 (9.0-21.6) 12/05/16 17:10 Random Glucose 133 mg/dL (70-110) H 12/05/16 17:10 Calcium 8.1 mg/dL (7.9-10.9) 12/05/16 17:10 Calcium Adj for Albumin 8.7 mg/dL (8.4-10.2) 12/05/16 17:10 Total Bilirubin 0.3 mg/dL (0.0-1.1) 12/05/16 17:10 AST 19 U/L (0-48) 12/05/16 17:10 ALT 17 U/L (19-67) L 12/05/16 17:10 Alkaline Phosphatase 43 U/L (50-170) L 12/05/16 17:10 Total Protein 6.1 gm/dL (6.2-8.2) L 12/05/16 17:10 Albumin 2.9 gm/dl (3.4-5.0) L 12/05/16 17:10 Blood Type A Positive 12/05/16 17:10 Antibody Screen Negative 12/05/16 17:10 Crossmatch See Detail 12/05/16 17:10 <Flaquito Olivia - Last Filed: 12/05/16 22:01> History of Present Illness: cystoscopy last week by Dr. Fuller, which apparently shows good functioning stents. the thought is, she may have kinked and therefore partially blocked proximal ureters. The hope is for surgical correction of same , but she is too anemic at the present time. /she as been admitted for correction of anemia. Immunizations: IMMUNIZATION HX Immunizations Up to Date Yes History of Influenza Vaccine Yes Hx Pneumococcal Vaccination Yes Exam - Exam Vital Signs: Vital Signs - Last Taken Temp 36.3 C L 12/05/16 20:09 Pulse 74 12/05/16 20:09 Resp 18 12/05/16 20:09 BP 106/43 12/05/16 20:09 Pulse Ox 100 12/05/16 20:09 Diagnostic Studies: Laboratory Results WBC 3.9 K/mm3 (4.0-10.5) L 12/05/16 17:10 RBC 1.64 M/mm3 (4.2-5.4) L 12/05/16 17:10 Hgb 5.2 gm/dL (12.5-16.0) L* D 12/05/16 17:10 Hct 16.3 % (37.0-47.0) L* D 12/05/16 17:10 MCV 99.4 fl (78-100) 12/05/16 17:10 MCH 31.7 pg (27-31) H 12/05/16 17:10 MCHC 31.9 g/dl (32-36) L 12/05/16 17:10 RDW 12.3 % (11.5-14.0) 12/05/16 17:10 Plt Count 140 K/mm3 (150-450) L 12/05/16 17:10 MPV 12.2 fl (6.0-9.5) H 12/05/16 17:10 Immature Gran % (Auto) 0.30 % (0.001-0.429) 12/05/16 17:10 Immature Gran # (Auto) 0.01 K/mm3 (0.000-0.0310) 12/05/16 17:10 Neutrophils % 58.2 % (42-75.0) 12/05/16 17:10 Lymphocytes % 27.2 % (20-51) 12/05/16 17:10 Monocytes % 9.9 % (0.0-9) H 12/05/16 17:10 Eosinophils % 4.1 % (0.0-3.0) H 12/05/16 17:10 Basophils % 0.3 % (0.0-1.0) 12/05/16 17:10 Nucleated RBC % 0.0 k/mm3 (0-1) 12/05/16 17:10 Neutrophils # 2.3 K/mm3 (1.3-6.0) 12/05/16 17:10 Lymphocytes # 1.1 k/mm3 (1.5-3.5) L 12/05/16 17:10 Monocytes # 0.4 k/mm3 (0.0-1.0) 12/05/16 17:10 Eosinophils # 0.2 k/mm3 (0.0-0.7) 12/05/16 17:10 Absolute Basophils 0.0 k/mm3 (0.0-0.1) 12/05/16 17:10 Sodium 143 mmol/L (132-142) H 12/05/16 17:10 Plasma Sodium 144 mmol/L (130-142) H 12/05/16 17:10 Potassium 3.0 mmol/L (3.4-4.6) L 12/05/16 17:10 Chloride 107 mmol/L (97-106) H 12/05/16 17:10 Carbon Dioxide 24.0 mmol/L (24-32.6) 12/05/16 17:10 Anion Gap 15.0 mmol/L (6.8-13.8) H 12/05/16 17:10 BUN 37 mg/dL (3-23) H 12/05/16 17:10 Creatinine 3.22 mg/dL (0.4-1.4) H 12/05/16 17:10 Est GFR (Non-Af Amer) 15 mL/min (60-130) L 12/05/16 17:10 BUN/Creatinine Ratio 11.5 (9.0-21.6) 12/05/16 17:10 Random Glucose 133 mg/dL (70-110) H 12/05/16 17:10 Calcium 8.1 mg/dL (7.9-10.9) 12/05/16 17:10 Calcium Adj for Albumin 8.7 mg/dL (8.4-10.2) 12/05/16 17:10 Total Bilirubin 0.3 mg/dL (0.0-1.1) 12/05/16 17:10 AST 19 U/L (0-48) 12/05/16 17:10 ALT 17 U/L (19-67) L 12/05/16 17:10 Alkaline Phosphatase 43 U/L (50-170) L 12/05/16 17:10 Total Protein 6.1 gm/dL (6.2-8.2) L 12/05/16 17:10 Albumin 2.9 gm/dl (3.4-5.0) L 12/05/16 17:10 Blood Type A Positive 12/05/16 17:10 Antibody Screen Negative 12/05/16 17:10 Crossmatch See Detail 12/05/16 17:10 Assessment/Plan - Narrative Narrative: Transfuse two units. Monitor labs. Check iron studies. Possibly home tomorrow. I supervised all of our nurse practitioner hospitalist care for this patient. - Assessment/Plan (1) Severe anemia Assessment: Acute on chronic anemia, due to severe renal failure, with possible underlying iron deficiency, we will check iron studies tomorrow morning. Problem: Acute (2) Vitamin B12 deficiency Problem: Acute (3) Sensorineural hearing loss Problem: Acute (4) Right ventricular hypertrophy Assessment: On echo 2011 Problem: Chronic (5) Osteopenia Problem: Chronic Qualifiers: Osteopenia location: unspecified Qualified Code(s): M85.80 - Other specified disorders of bone density and structure, unspecified site (6) Osteoarthritis Problem: Chronic Qualifiers: Osteoarthritis type: primary Laterality: unspecified laterality (7) Chronic pain Problem: Chronic Qualifiers: Chronic pain type: chronic pain syndrome Qualified Code(s): G89.4 - Chronic pain syndrome (8) Hyperlipidemia Problem: Chronic Qualifiers: Hyperlipidemia type: unspecified Qualified Code(s): E78.5 - Hyperlipidemia , unspecified (9) Hypothyroidism Problem: Chronic Qualifiers: Hypothyroidism type: acquired Qualified Code(s): E03.9 - Hypothyroidism, unspecified (10) Fibromyalgia Problem: Chronic (11) Chronic renal failure, stage 5 Problem: Chronic (12) Bladder cancer Problem: Chronic Qualifiers: Bladder location: unspecified site Qualified Code(s): C67.9 - Malignant neoplasm of bladder, unspecified (13) Narcolepsy Problem: Chronic Qualifiers: 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 Qualified Code(s): G47.419 - Narcolepsy without cataplexy (14) Allergic rhinitis Problem: Chronic Qualifiers: Chronicity: chronic Allergic rhinitis trigger: unspecified Allergic rhinitis seasonality: unspecified seasonality Qualified Code(s): J30.9 - Allergic rhinitis, unspecified (15) Normal echocardiogram Problem: Chronic
[2016-12-05] MEDS ORDERED: traMADol HCL 50 MG TABLET PO PRN (19:56)
[2016-12-05] MEDS ORDERED: POTASSIUM CHLORIDE 20 MEQ TABLET.SA ONE (21:18)
[2016-12-05] MEDS ORDERED: MONTELUKAST SODIUM 10 MG TABLET ONE (21:18)
[2016-12-05] MEDS: PREGABALIN 75 MG CAPSULE PO SCH (21:19)
[2016-12-05] MEDS: POTASSIUM CHLORIDE 20 MEQ TABLET.SA PO SCH (21:20)
[2016-12-05] MEDS ORDERED: FUROSEMIDE 10 MG/ML VIAL IV ONE (22:30)
[2016-12-06 05:39] LABS: Anion Gap 13.3 mmol/L (6.8-13.8); BUN/Creatinine Ratio 11.5 (9.0-21.6); Carbon Dioxide 25.4 mmol/L (24-32.6); Estimated Creat Clear 17.7; Potassium 3.7 mmol/L (3.4-4.6)
[2016-12-06 05:40] LABS: Iron 91 mcg/dL (35-120); Transferrin Sat. (% Sat.) 40 % (15-55)
[2016-12-06] MEDS ORDERED: LEVOTHYROXINE SODIUM 75 MCG TABLET PO SCH (06:00)
[2016-12-06] MEDS ORDERED: FUROSEMIDE 10 MG/ML VIAL IV PRN (07:32)
--- NOTE | 2016-12-06 07:50 | DS ---
(1) Severe anemia Problem: Acute (2) Vitamin B12 deficiency Problem: Acute (3) Sensorineural hearing loss Problem: Acute (4) Right ventricular hypertrophy Problem: Chronic (5) Osteopenia Problem: Chronic Qualifiers: Osteopenia location: unspecified Qualified Code(s): M85.80 - Other specified disorders of bone density and structure, unspecified site (6) Osteoarthritis Problem: Chronic Qualifiers: Osteoarthritis type: primary Laterality: unspecified laterality (7) Chronic pain Problem: Chronic Qualifiers: Chronic pain type: chronic pain syndrome Qualified Code(s): G89.4 - Chronic pain syndrome (8) Hyperlipidemia Problem: Chronic Qualifiers: Hyperlipidemia type: unspecified Qualified Code(s): E78.5 - Hyperlipidemia , unspecified (9) Hypothyroidism Problem: Chronic Qualifiers: Hypothyroidism type: acquired Qualified Code(s): E03.9 - Hypothyroidism, unspecified (10) Fibromyalgia Problem: Chronic (11) Chronic renal failure, stage 5 Problem: Chronic (12) Bladder cancer Problem: Chronic Qualifiers: Bladder location: unspecified site Qualified Code(s): C67.9 - Malignant neoplasm of bladder, unspecified (13) Narcolepsy Problem: Chronic Qualifiers: 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 Qualified Code(s): G47.419 - Narcolepsy without cataplexy (14) Allergic rhinitis Problem: Chronic Qualifiers: Chronicity: chronic Allergic rhinitis trigger: unspecified Allergic rhinitis seasonality: unspecified seasonality Qualified Code(s): J30.9 - Allergic rhinitis, unspecified (15) Normal echocardiogram Problem: Chronic Description of Stay: Annel has been stable since admission. She was transfused 2 units packed red blood cells yesterday. Her iron studies are normal. Her iron studies are normal this morning. Her Hgb this morning is 7.9. In anticipation of upcoming surgery, she will be given one more unit of blood to provide her with a cushion of blood, then will be discharged. She agrees with the plan. Procedures Performed: none Discharge Disposition: Home self care Disposition: Home self-care Condition: Good Discharge Activity: Activity as tolerated Discharge Diet: Renal Failure Referrals: Flaquito Olivia MD [Primary Care Provider] - Problem Oriented Discharge Instructions to Patient/Family: Anemia, Nonspecific , Blood Transfusion Additional Patient Instructions (free text): Follow up with Dr. Henson in 1 month. Hemogram blood test in 2 days. Complete Home Medications List: Complete Home Medication List: Cholecalciferol [Vitamin D] 1,000 unit PO DAILY 06/27/16 Cyanocobalamin (Vitamin B-12) [B-12 Kit] 1,000 mcg IJ Q30D 06/27/16 Ferrous Sulfate [Iron] 325 mg PO BID 06/27/16 Furosemide [Lasix] 160 mg PO BID 06/27/16 Levothyroxine Sodium [Synthroid] 75 mcg PO DAILY 06/27/16 Loratadine [Claritin] 10 mg PO DAILY 06/27/16 Modafinil [Provigil] 200 mg PO QAM 06/27/16 Mometasone Furoate [Nasonex] 2 spray NS DAILY 06/27/16 Montelukast Sodium [Singulair] 10 mg PO QPM 06/27/16 Pantoprazole Sodium 40 mg PO DAILY 06/27/16 Phentermine HCl [Adipex-P] 37.5 mg PO DAILY 06/27/16 Pregabalin [Lyrica] 150 mg PO BID 06/27/16 Solifenacin Succinate [Vesicare] 10 mg PO DAILY 06/27/16 traMADol HCL [Ultram] 100 mg PO Q12H PRN 07/03/16 Calcitriol 0.25 mcg PO DAILY 10/03/16 Fenofibrate Nanocrystallized [Tricor] 145 mg PO DAILY 10/03/16 Folic Acid 2 mg PO DAILY 10/03/16 Potassium Chloride [K-Dur] 20 meq PO TID 10/03/16 Clotrimazole [Itch Relief] 15 gm TP DAILY 12/05/16 Spironolact/Hydrochlorothiazid [Aldactazide 50-50 Tablet] 0.5 each PO DAILY 04/13 Hydrochlorothiazide [Hydrodiuril] 25 mg PO DAILY tablet 12/06/16
[2016-12-06] MEDS ORDERED: FUROSEMIDE 80 MG TABLET PO SCH (08:00)
[2016-12-06] MEDS: PREGABALIN 75 MG CAPSULE PO SCH (08:28)
[2016-12-06] MEDS: POTASSIUM CHLORIDE 20 MEQ TABLET.SA PO SCH (08:29)
[2016-12-06] MEDS ORDERED: CLOTRIMAZOLE 15 APPL TUBE TP SCH ×2 (09:00)
[2016-12-06] MEDS ORDERED: MOMETASONE FUROATE 120 SPRAY INHALER NS SCH (09:00)
[2016-12-06] MEDS ORDERED: FERROUS SULFATE 325 MG TABLET PO SCH (09:00)
[2016-12-06] MEDS ORDERED: SPIRONOLACTONE 25 MG TABLET PO SCH (09:00)
[2016-12-06] MEDS ORDERED: CALCITRIOL 0.25 MCG CAPSULE PO SCH (09:00)
[2016-12-06] MEDS ORDERED: FENOFIBRATE,MICRONIZED 134 MG CAPSULE PO SCH (09:00)
[2016-12-06] MEDS ORDERED: PANTOPRAZOLE SODIUM 40 MG TABLET.EC PO SCH (09:00)
[2016-12-06] MEDS ORDERED: HYDROCHLOROTHIAZIDE 25 MG TABLET PO SCH (09:00)
[2016-12-06] MEDS ORDERED: TOLTERODINE TARTRATE 2 MG CAPSULE PO SCH (09:00)
[2016-12-06] MEDS ORDERED: FOLIC ACID 1 MG TABLET PO SCH (09:00)
[2016-12-06] MEDS ORDERED: LORATADINE 10 MG TABLET PO SCH (09:00)
[2016-12-06] MEDS ORDERED: CHOLECALCIFEROL 1,000 UNIT CAPSULE PO SCH (09:00)
[2016-12-06 11:33] VITALS: BP 128/57
[2016-12-06] MEDS ORDERED: MONTELUKAST SODIUM 10 MG TABLET PO SCH (17:00)
[2016-12-19] MEDS ORDERED: CYANOCOBALAMIN 1,000 MCG/ML VIAL IJ SCH (09:00)
== END 2016-12-06 13:50 | disposition home or self-care (01) ==
LOC: ER 16:43 → MS 18:16
PROVIDERS: ADMIT Allergy & Immunology; ATTEND Allergy & Immunology
DX: D50.0 Iron deficiency anemia secondary to blood loss (chronic) (principal); D63.1 Anemia in chronic kidney disease; N18.5 Chronic kidney disease, stage 5; C67.9 Malignant neoplasm of bladder, unspecified; H90.5 Unspecified sensorineural hearing loss; I51.7 Cardiomegaly; M85.80 Other specified disorders of bone density and structure, unspecified site; M19.90 Unspecified osteoarthritis, unspecified site; G89.29 Other chronic pain; E78.5 Hyperlipidemia, unspecified; E03.9 Hypothyroidism, unspecified; M79.7 Fibromyalgia; G47.419 Narcolepsy without cataplexy; J30.9 Allergic rhinitis, unspecified; F17.210 Nicotine dependence, cigarettes, uncomplicated
CPT/HCPCS: 36415; 36430; 80048; 80053; 83540; 83550; 85018; 85025; 86850; 86900; 96374; 96376; 99283; G0378; P9016

== ENCOUNTER 2017-01-10 11:49 | Day surgery (SDC) | payer MEDICARE, MEDICAID ==
--- OUTSIDE RECORDS SUMMARY | 2017-01-10 11:56 | XMS REPORT | Summary of Care ---
:1950 Author Organization [facility] Address [address] [place] [address] Care Team Providers Name Role Phone Flaquito Henson Primary Care Physician Encounter Date(s): 11/21/16 - 11/21/16 [facility], [address] [place], [place] [address] Discharge Disposition: 01 Discharged to Home or Self Care Attending Physician: Emmanuel Fuller MD Referring Physician: Emmanuel Fuller MD Vital Signs Most recent to oldest [Reference Range]: 1 Temperature Temporal Artery [36.0-38.0 DegC] 36.1 DegC (11/21/16 3:04 PM) Peripheral Pulse Rate [60-100 bpm] 83 bpm (11/21/16 3:04 PM) Blood Pressure [90-130/60-90 mmHg] 126/61mmHg (11/21/16 3:04 PM) Mean Arterial Pressure, Cuff 83 mmHg (11/21/16 3:04 PM) Problem List Condition Effective Dates Status Health Status Informant Abnormal findings on diagnostic Active imaging of urinary organs(Confirmed) Anemia(Confirmed) Active Anemia of chronic renal Active failure(Confirmed) B12 deficiency(Confirmed) Active CFS (chronic fatigue Active syndrome)(Confirmed) Chronic low back pain(Confirmed) Active CKD stage 3(Confirmed) Active Depression(Confirmed) Active Diastolic heart failure(Confirmed) Active Edema(Confirmed) Active Fibromyalgia(Confirmed) Active GERD - Gastro-esophageal reflux Active disease(Confirmed) Other hydronephrosis(Confirmed) Active Hyperlipidemia(Confirmed) Active Hypertension(Confirmed) Active Hypokalemia(Confirmed) Active Hypothyroidism(Confirmed) Active Lymphedema of leg(Confirmed)1 Active 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) Narcolepsy(Confirmed) Active Osteoarthritis(Confirmed) Active Malignant neoplasm of overlapping Active sites of bladder(Confirmed) Chronic leg pain(Confirmed) Active Peripheral neuropathy(Confirmed) Active Other abnormal findings in Active urine(Confirmed) 1B LE's Allergies, Adverse Reactions, Alerts Substance Reaction Severity Status contrast media (iodine-based) Anaphylactic reaction Active penicillin rash Active Medications calcitriol 0.25 mcg oral capsule 1 cap(s), Oral, Daily, # 30 cap(s), 6 Refill(s), Start Date: 09/20/16 14:19:00 CDT, Pharmacy: [place], [place] Start Date: 09/20/16 Status: Orderedcefuroxime 500 mg oral tablet 1 tab(s), Oral, BID, # 28 tab(s), 0 Refill(s), Start Date: 06/28/16 12:45:00 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 Start Date: 06/28/16 Stop Date: 07/20/16 Status: Discontinuedcholecalciferol 1000 intl units oral tablet 1 tab(s), Oral, Daily, # 30 tab(s), 6 Refill(s), Start Date: 09/09/15 14:55:00 CDT, Pharmacy: [place], [place] Start Date: 09/09/15 Status: OrderedClaritin 10 [...] tab(s), 5 Refill(s), Start Date: 07/26/15 8:39:32 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 , Pharmacy: [place], [place] Start Date: 07/26/15 Status: Orderedferrous sulfate 325 mg (65 mg elemental iron) oral tablet 1 tab(s), Oral, BID, # 60 tab(s), 5 Refill(s), Start Date: 02/02/15 16:13:00 CDT , Pharmacy: [place], [place] Start Date: 02/02/15 Stop Date: 07/26/15 Status: Completedfolic acid 1 mg oral tablet 1 tab(s), Oral, Daily, # 30 tab(s), 0 Refill(s), Start Date: 11/03/14 16:20:00 CDT Start Date: 11/03/14 Status: OrderedLasix 80 mg oral tablet 2 tab(s), Oral, BID, # 30 tab(s), 0 [...] No data available for this section Immunizations Vaccine Date Refusal Reason BCG 6/27/17 BCG 11/14/16 BCG 09/07/16 BCG 08/31/16 BCG 08/24/16 BCG 08/17/16 BCG 08/10/16 BCG 08/03/16 Procedures Procedure Date Related Diagnosis Body Site Cystoureteroscopy (Right)1 10/12/16 Colonoscopy 03/04/12 Esophagogastroduodenoscopy 03/04/12 Arthroscopic knee operation2 11/13/06 Cataract surgery 2004 Tubal ligation 1979 Complete salpingo-oophorectomy 1971 Cholecystectomy Reattachment of retina 1auto-populated from documented surgical [id number] Social History No data available for this section Assessment and Plan No data available for this section
--- OUTSIDE RECORDS SUMMARY | 2017-01-10 12:00 | XMS REPORT | Summary of Care ---
:1950 Author Organization [facility] Address [address] [place] [address] Care Team Providers Name Role Phone Flaquito Henson Primary Care Physician Encounter Date(s): 10/25/16 - 10/25/16 [facility], [address] [place], [place] [address] Discharge Diagnosis: Malignant neoplasm of overlapping sites of bladder Discharge Diagnosis: CKD stage 3 Discharge Diagnosis: Other hydronephrosis Discharge Diagnosis: Other abnormal findings in urine Discharge Diagnosis: Abnormal findings on diagnostic imaging of urinary organs Discharge Disposition: 01 Discharged to Home or Self Care Attending Physician: Emmanuel Fuller MD Referring Physician: Emmanuel Fuller MD Vital Signs Most recent to oldest [Reference Range]: 1 Blood Pressure [90-130/60-90 mmHg] 152/78mmHg *HI* (10/25/16 12:13 PM) Mean Arterial Pressure, Cuff 103 mmHg (10/25/16 12:13 PM) Problem List Condition Effective Dates Status [...] Refill(s), Start Date: 09/20/16 14:19:00 CDT, Pharmacy: [place], [place] Start Date: 09/20/16 Status: Orderedcefuroxime 500 mg oral tablet 1 tab(s), Oral, BID, # 28 tab(s), 0 Refill(s), Start Date: 06/28/16 12:45:00 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 Start Date: 06/28/16 Stop Date: 07/20/16 Status: Discontinuedcholecalciferol 1000 intl units oral tablet 1 tab(s), Oral, Daily, # 30 tab(s), 6 Refill(s), Start Date: 09/09/15 14:55:00 CDT, Pharmacy: [facility] [place], [place] Start Date: 09/09/15 Status: OrderedClaritin 10 [...] tab(s), 5 Refill(s), Start Date: 07/26/15 8:39:32 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 , Pharmacy: [place], [place] Start Date: 07/26/15 Status: Orderedferrous sulfate 325 mg (65 mg elemental iron) oral tablet 1 tab(s), Oral, BID, # 60 tab(s), 5 Refill(s), Start Date: 02/02/15 16:13:00 CDT , Pharmacy: [place], [place] Start Date: 02/02/15 Stop Date: 07/26/15 [...] section Immunizations Vaccine Date Refusal Reason BCG 09/07/16 BCG 08/31/16 BCG 08/24/16 BCG 08/17/16 BCG 08/10/16 BCG 08/03/16 Procedures Procedure Date Related Diagnosis Body Site Cystoureteroscopy (Right)1 10/12/16 Colonoscopy 03/04/12 Esophagogastroduodenoscopy 03/04/12 Arthroscopic knee operation2 11/13/06 Cataract surgery 2004 Tubal ligation 1979 Complete salpingo-oophorectomy 1971 Cholecystectomy Reattachment of retina 1auto-populated from documented surgical [id number] Social History No data available for this section Assessment and Plan No data available for this section
--- OUTSIDE RECORDS SUMMARY | 2017-01-10 12:00 | XMS REPORT | Summary of Care ---
:1950 Author Organization [facility] Address [address] [place] [address] Care Team Providers Name Role Phone Flaquito Henson Primary Care Physician Encounter Date(s): 11/14/16 - 11/14/16 [facility], [address] [place], [place] [address] Discharge Disposition: 01 Discharged to Home or Self Care Attending Physician: Emmanuel Fuller MD Referring Physician: Emmanuel Fuller MD Vital Signs Most recent to oldest [Reference Range]: 1 Temperature Temporal Artery [36.0-38.0 DegC] 36.4 DegC (11/14/16 4:22 PM) Peripheral Pulse Rate [60-100 bpm] 95 bpm (11/14/16 4:22 PM) Blood Pressure [90-130/60-90 mmHg] 119/57mmHg (11/14/16 4:22 PM) Mean Arterial Pressure, Cuff 78 mmHg (11/14/16 4:22 PM) Problem List Condition Effective Dates Status [...] Refill(s), Start Date: 09/20/16 14:19:00 CDT, Pharmacy: [place], [place] Start Date: 09/20/16 Status: Orderedcefuroxime 500 mg oral tablet 1 tab(s), Oral, BID, # 28 tab(s), 0 Refill(s), Start Date: 06/28/16 12:45:00 [employer] Start Date: 06/28/16 Stop Date: 07/20/16 Status: Discontinuedcholecalciferol 1000 intl units oral tablet 1 tab(s), Oral, Daily, # 30 tab(s), 6 Refill(s), Start Date: 09/09/15 14:55:00 CDT, Pharmacy: [place], [place] Start Date: 09/09/15 Status: OrderedClaritin 10 [...] tab(s), 5 Refill(s), Start Date: 07/26/15 8:39:32 [employer] , Pharmacy: [place], [place] Start Date: 07/26/15 Status: Orderedferrous sulfate 325 mg (65 mg elemental iron) oral tablet 1 tab(s), Oral, BID, # 60 tab(s), 5 Refill(s), Start Date: 02/02/15 16:13:00 CDT , Pharmacy: [place], [place] Start Date: 02/02/15 Stop Date: 07/26/15 [...] section Immunizations Vaccine Date Refusal Reason BCG 6/20/17 BCG 09/07/16 BCG 08/31/16 BCG 08/24/16 BCG 08/17/16 BCG 08/10/16 BCG 08/03/16 Procedures Procedure Date Related Diagnosis Body Site Cystoureteroscopy (Right)1 10/12/16 Colonoscopy 03/04/12 Esophagogastroduodenoscopy 03/04/12 Arthroscopic knee operation2 11/13/06 Cataract surgery 2004 Tubal ligation 1979 Complete salpingo-oophorectomy 1971 Cholecystectomy Reattachment of retina 1auto-populated from documented surgical [id number] Social History No data available for this section Assessment and Plan No data available for this section
--- OUTSIDE RECORDS SUMMARY | 2017-01-10 12:01 | XMS REPORT | Summary of Care ---
:1950 Author Organization [facility] Address [address] [place] [address] Care Team Providers Name Role Phone Flaquito Henson Primary Care Physician Encounter Date(s): 11/30/16 - 11/30/16 [facility], [address] [place], [place] [address] Discharge Disposition: 01 Discharged to Home or [...] Refill(s), Start Date: 09/20/16 14:19:00 CDT, Pharmacy: [place], [place] Start Date: 09/20/16 Status: Orderedcefuroxime 500 mg oral tablet 1 tab(s), Oral, BID, # 28 tab(s), 0 Refill(s), Start Date: 06/28/16 12:45:00 [employer] Start Date: 06/28/16 Stop Date: 07/20/16 Status: Discontinuedcholecalciferol 1000 intl units oral tablet 1 tab(s), Oral, Daily, # 30 tab(s), 6 Refill(s), Start Date: 09/09/15 14:55:00 CDT, Pharmacy: [facility] [place], [place] Start Date: 09/09/15 Status: OrderedClaritin 10 [...] tab(s), 5 Refill(s), Start Date: 07/26/15 8:39:32 ST[employer]AGE [employer]TER , Pharmacy: [place], [place] Start Date: 07/26/15 Status: Orderedferrous sulfate 325 mg (65 mg elemental iron) oral tablet 1 tab(s), Oral, BID, # 60 tab(s), 5 Refill(s), Start Date: 02/02/15 16:13:00 CDT , Pharmacy: [place], [place] Start Date: 02/02/15 Stop Date: 07/26/15 [...] section Immunizations Vaccine Date Refusal Reason BCG 11/30/16 BCG 11/21/16 BCG 11/14/16 BCG 09/07/16 BCG 08/31/16 BCG 08/24/16 BCG 08/17/16 BCG 08/10/16 BCG 08/03/16 Procedures Procedure Date Related Diagnosis Body Site Cystoureteroscopy (Right)1 10/12/16 Colonoscopy 03/04/12 Esophagogastroduodenoscopy 03/04/12 Arthroscopic knee operation2 11/13/06 Cataract surgery 2004 Tubal ligation 1979 Complete salpingo-oophorectomy 1972 Cholecystectomy Reattachment of retina 1auto-populated from documented surgical [id number] Social History No data available for this section Assessment and Plan No data available for this section
== END 2017-01-10 11:50 | disposition home or self-care (01) ==
LOC: AMB 11:49
PROVIDERS: ATTEND Urology
DX: Z53.9 Procedure and treatment not carried out, unspecified reason (principal)

== ENCOUNTER 2017-02-12 18:18 | Observation (INO) | payer MEDICARE, MEDICAID ==
--- NOTE | 2017-02-12 19:32 | ERNOTE ---
Medical Problem HPI - Narrative Date of Service: 02/12/17 - General Chief Complaint: General Assessment Time Seen by Provider: 02/12/17 18:46 Source: patient, RN notes reviewed, old records Exam Limitations: no limitations - Immun/Allergies/Home Medications Immunizations: IMMUNIZATION HX Immunizations Up to Date Yes History of Influenza Vaccine Yes Hx Pneumococcal Vaccination Yes Allergies/Adverse Reactions: Allergies Iodinated Contrast- Oral and IV Dye [Iodinated Contrast Media - IV Dye] Allergy (Severe, Verified 02/12/17 18:31) Anaphylaxis Penicillins Adverse Reaction (Mild, Verified 02/12/17 18:31) RASH Home Medications: HOME MEDICATIONS Cholecalciferol [Vitamin D] 1,000 unit PO DAILY 06/27/16 [Last Taken 12/05/16 09 :00] Cyanocobalamin (Vitamin B-12) [B-12 Kit] 1,000 mcg IJ Q30D 06/27/16 [Last Taken Unknown] Furosemide [Lasix] 160 mg PO BID 06/27/16 [Last Taken Unknown] Levothyroxine Sodium [Synthroid] 75 mcg PO DAILY 06/27/16 [Last Taken 12/05/16 09:00] Loratadine [Claritin] 10 mg PO DAILY 06/27/16 [Last Taken 12/05/16 09:00] Modafinil [Provigil] 200 mg PO QAM 06/27/16 [Last Taken 12/05/16 09:00] Mometasone Furoate [Nasonex] 2 spray NS DAILY 06/27/16 [Last Taken 12/05/16 09: 00] Montelukast Sodium [Singulair] 10 mg PO QPM 06/27/16 [Last Taken 12/04/16 21:00] Pantoprazole Sodium 40 mg PO DAILY 06/27/16 [Last Taken 12/05/16 09:00] Phentermine HCl [Adipex-P] 37.5 mg PO DAILY 06/27/16 [Last Taken Unknown] Pregabalin [Lyrica] 150 mg PO BID 06/27/16 [Last Taken 12/05/16 09:00] Solifenacin Succinate [Vesicare] 10 mg PO DAILY 06/27/16 [Last Taken 12/04/16 2100] traMADol HCL [Ultram] 100 mg PO Q12H PRN 07/03/16 [Last Taken Unknown] Folic Acid 2 mg PO DAILY 10/03/16 [Last Taken 12/05/16 09:00] Potassium Chloride [K-Dur] 30 meq PO TID 10/03/16 [Last Taken 12/04/16 21:00] Clotrimazole [Itch Relief] 15 gm TP DAILY 12/05/16 [Last Taken 12/05/16 09:00] Spironolact/Hydrochlorothiazid [Aldactazide 50-50 Tablet] 0.5 each PO DAILY 04/13 [Last Taken 12/05/16 09:00] Hydrochlorothiazide [Hydrodiuril] 25 mg PO DAILY tablet 12/06/16 [Last Taken Unknown] Ascorbic Acid [Vitamin C] 500 mg PO DAILY 02/12/17 [Last Taken Unknown] Aspirin 81 mg PO DAILY 02/12/17 [Last Taken Unknown] Bisacodyl [Laxative] 5 mg PO DAILY PRN 02/12/17 [Last Taken Unknown] Cyproheptadine HCl 4 mg PO DAILY PRN 02/12/17 [Last Taken Unknown] Lidocaine [Lidoderm 5%] 2 patch TP DAILY 02/12/17 [Last Taken Unknown] Multivitamin [Multivitamins] 1 each PO DAILY 02/12/17 [Last Taken Unknown] [place]-3S/Dha/Epa/Fish Oil [[place]-3 Fish Oil 1,000 mg Sfgl] 1 each PO DAILY 02/12 [Last Taken Unknown] Silver Sulfadiazine [Silver Sulfadiazine (Silvadene)] 25 gm TP BID 02/12/17 [ Last Taken Unknown] - History of Present History Narrative: Annel is a 66 year old female brought to the ED by a friend for anemia. She had labs done today by nephrology and was found to have a hemoglobin of 6.8. She has stage V chronic renal failure. She reports that she has been more tired than usual. This has been getting progressively worse for several weeks. Timing: getting worse Review of Systems - Review of Systems Constitutional: Present: fatigue, malaise, decreased activity level. Absent: fever, chills EYE: Present: no symptoms reported ENT: Present: no symptoms reported Respiratory: Present: shortness of breath. Absent: cough Cardiology: Present: edema. Absent: chest pain, palpitations Gastrointestinal/Abdominal: Absent: nausea, vomiting, diarrhea, abdominal pain Genitourinary: Absent: dysuria, decreased urinary output Musculoskeletal: Present: muscle pain. Absent: neck pain Skin: Absent: rash, lesions Neurological: Present: dizziness/light-headedness. Absent: headache Endocrine: Present: no symptoms reported Hematologic/Lymphatic: Present: easy bruising, easy bleeding Psych: Present: no symptoms reported - Patient's Past Medical History Patient History - Medical: Anemia, Anxiety, Arthritis, Chronic Pain, Depression , Fibromyalgia, GERD, Hypothyroidism, Osteoarthritis, Renal Disease, Other Patient History - Cardiac/Respiratory: Hyperlipidemia Patient History - Cancer: Bladder, Chemotherapy history Patient History - Surgical Procedures: Cancer Surgery, Cataracts, Cholecystectomy, Colonoscopy, EGD, Tubal Ligation, T & A, Other, Orthopedic, Urology Patient History - Other: None LMP (females 10-50): Menopausal - Family History Mother Family History - Medical: Diabetes Type 2 Family History - Cardiac/Respiratory: No pertinent hx Family History - Cancer: No pertinent family hx Father Family History - Medical: , No pertinent hx Family History - Cardiac/Respiratory: CHF Family History - Cancer: Bladder - Social History Living Situations: home Abuse History: No History of abuse Psych History: Hx of Anxiety, Hx of Depression, Current tx/ever been on anti- depressants or anti-anxiety meds Smoking Status: Current every day smoker Have you smoked in the past 12 months: Yes Do you dip or chew tobacco: No Alcohol Use: none Drug Use: none - Immunizations Immunizations Up to Date: Yes Hx Pneumococcal Vaccination: Yes History of Influenza Vaccine: Yes Physical Exam - Physical Exam General Appearance: Present: wd/wn, alert, no apparent distress Head Exam: Present: normal inspection Neck: Present: normal inspection, nontender, supple Respiratory: Present: no respiratory distress, normal breath sounds, no accessory muscle use, lungs clear Cardiovascular/Chest: Present: regular rate, rhythm, no murmur, normal peripheral pulses Gastrointestinal/Abdominal: Present: normal bowel sounds, nontender, nondistended, soft Extremity Exam: Present: pedal edema, extremity edema - Severe edema to lower legs and feet bilaterally, tender to palpation, chronic Neurological Exam: Present: alert, oriented, normal mood/affect, no motor/ sensory deficits Skin Exam: Present: warm/dry, pallor ED Progress - Results and Orders Patient's Lab Results:: I have reviewed the patient's lab results. - Vital Signs Patient's Vital Signs:: I have reviewed the patient's vital signs. Vital Signs: Vital Signs 02/12/17 02/12/17 18:21 18:25 Temperature 36.5 C 36.5 C Pulse Rate 83 83 Respiratory 18 18 Rate Blood Pressure 133/56 133/56 O2 Sat by Pulse 100 100 Oximetry - Progress/Reassessment Chief Complaint: General Assessment Progress:: Unchanged Plan - Plan Plan: Patient will be admitted to observation status on med/surg to receive transfusions. 2 units of blood have been ordered. Departure - Departure Clinical Impression: Chronic renal failure, stage 5, Severe anemia Disposition: [facility] Condition: Stable
--- NOTE | 2017-02-12 21:40 | HP ---
<Jessica Guillen - Last Filed: 02/12/17 22:06> Chief Complaint - Chief Complaint Date of Service: 02/12/17 Time of Service: 21:39 Chief Complaint: Anemia History of Present Illness: 66 years old female adm to the hospital from ER with reports of anemia hgb 6.8. Pt of Dr Olivia, with PMH significant for Bladder cancer , stage 5 renal failure, bilateral hydronephrosis which was treated with bilateral stent placement. pt have upcoming appointment to have stent insertion at [facility]. She was seen by supervisor detasseling crew [place] and had lab work done today, she was later called with hgb 6.8 and instructed to go to the ER. She denies dizziness, lightheadedness, palpitation, melena, shortness of breath , hemoptysis and chest pain. Earlier labs Bun/Cre 49/3.86 at baseline, iron study was noted. Plan for PRBC transfusion and pt is schedule to follow up with supervisor detasseling crew tomorrow. Plan of care discussed with pt she verbalized understanding and agree. - Patient's Past Medical History Patient History - Medical: Anemia, Anxiety, Arthritis, Chronic Pain, Depression , Fibromyalgia, GERD, Hypothyroidism, Osteoarthritis, Renal Disease Patient History - Cardiac/Respiratory: CHF, Hyperlipidemia Patient History - Cancer: Bladder, Chemotherapy history Patient History - Surgical Procedures: Cancer Surgery, Cataracts, Cholecystectomy, Colonoscopy, EGD, Tubal Ligation, T & A, Other, Orthopedic, Urology Patient History - Other: None LMP (females 10-50): Menopausal - Family History Mother Family History - Medical: Diabetes Type 2 Family History - Cardiac/Respiratory: No pertinent hx Family History - Cancer: No pertinent family hx Father Family History - Medical: , No pertinent hx Family History - Cardiac/Respiratory: CHF Family History - Cancer: Bladder - Social History Living Situations: alone Abuse History: No History of abuse Psych History: Hx of Anxiety, Hx of Depression, Current tx/ever been on anti- depressants or anti-anxiety meds Smoking Status: Current every day smoker Have you smoked in the past 12 months: Yes Do you dip or chew tobacco: No Patient requests Smoking Cessation Consult: No Initiate information on Smoking Cessation: Yes Alcohol Use: none Drug Use: none - Immunizations Immunizations Up to Date: Yes Hx Pneumococcal Vaccination: Yes History of Influenza Vaccine: Yes Review Of Systems (GEN) - Review of Systems Generalized/Overall Review: Present: No Symptoms Reported EENTM: Present: No Symptoms Reported Respiratory: Present: Cough Cardiac: Present: No Symptoms Reported Abdominal: Present: No Symptoms Reported Genitourinary: Present: Frequency Musculoskeletal: Present: Muscle Pain, Other - BLE pititng edema Neurological: Present: No Symptoms Reported Skin: Present: Other - BLE edema pitting Endocrine: Present: No Symptoms Reported Immunizations: IMMUNIZATION HX Immunizations Up to Date Yes History of Influenza Vaccine Yes Hx Pneumococcal Vaccination Yes Allergies/Adverse Reactions: Allergies Allergy/AdvReac Type Severity Reaction Status Date / Time Iodinated Contrast- Oral and Allergy Severe Anaphylaxis Verified 02/12/17 18:31 IV Dye [Iodinated Contrast Media - IV Dye] Penicillins AdvReac Mild RASH Verified 02/12/17 18:31 Home Medications: HOME MEDICATIONS Cholecalciferol [Vitamin D] 1,000 unit PO DAILY 06/27/16 [Last Taken 12/05/16 09 :00] Cyanocobalamin (Vitamin B-12) [B-12 Kit] 1,000 mcg IJ Q30D 06/27/16 [Last Taken Unknown] Furosemide [Lasix] 160 mg PO BID 06/27/16 [Last Taken Unknown] Levothyroxine Sodium [Synthroid] 75 mcg PO DAILY 06/27/16 [Last Taken 12/05/16 09:00] Loratadine [Claritin] 10 mg PO DAILY 06/27/16 [Last Taken 12/05/16 09:00] Modafinil [Provigil] 200 mg PO QAM 06/27/16 [Last Taken 12/05/16 09:00] Mometasone Furoate [Nasonex] 2 spray NS DAILY PRN 06/27/16 [Last Taken 12/05/16 09:00] Montelukast Sodium [Singulair] 10 mg PO QPM 06/27/16 [Last Taken 12/04/16 21:00] Pantoprazole Sodium 40 mg PO DAILY 06/27/16 [Last Taken 12/05/16 09:00] Pregabalin [Lyrica] 150 mg PO BID 06/27/16 [Last Taken 12/05/16 09:00] Solifenacin Succinate [Vesicare] 10 mg PO DAILY 06/27/16 [Last Taken 12/04/16 2100] traMADol HCL [Ultram] 100 mg PO Q12H PRN 07/03/16 [Last Taken Unknown] Folic Acid 2 mg PO DAILY 10/03/16 [Last Taken 12/05/16 09:00] Potassium Chloride [K-Dur] 30 meq PO TID 10/03/16 [Last Taken 12/04/16 21:00] Clotrimazole [Itch Relief] 15 gm TP DAILY 12/05/16 [Last Taken 12/05/16 09:00] Ascorbic Acid [Vitamin C] 500 mg PO DAILY 02/12/17 [Last Taken Unknown] Aspirin 81 mg PO DAILY 02/12/17 [Last Taken Unknown] Bisacodyl [Laxative] 5 mg PO DAILY PRN 02/12/17 [Last Taken Unknown] Cyproheptadine HCl 4 mg PO DAILY PRN 02/12/17 [Last Taken Unknown] Lidocaine [Lidoderm 5%] 2 patch TP DAILY PRN 02/12/17 [Last Taken Unknown] Multivitamin [Multivitamins] 1 each PO DAILY 02/12/17 [Last Taken Unknown] [place]-3S/Dha/Epa/Fish Oil [[place]-3 Fish Oil 1,000 mg Sfgl] 1 each PO DAILY 02/12 [Last Taken Unknown] Nicotine [Nicoderm] 21 mg TD HS #30 patch.td24 02/13/17 [Last Taken Unknown] Spironolact/Hydrochlorothiazid [Aldactazide 50-50 Tablet] 0.5 each PO DAILY [Last Taken Unknown] Exam - Exam Vital Signs: Vital Signs - Last Taken Temp 36.9 C 02/12/17 20:06 Pulse 74 02/12/17 20:06 Resp 16 02/12/17 20:06 BP 124/54 02/12/17 20:06 Pulse Ox 99 02/12/17 20:06 Constitutional: Present: Alert, Oriented x3, Cooperative, No distress, Middle aged, Morbidly obese ENT Exam: Present: hearing grossly normal Eye Exam: bilateral eye: normal inspection Neck: Present: full range of motion Back Exam: Present: normal inspection Breasts: Present: Exam deferred Respiratory: Present: chest non-tender, decreased breath sounds, crackles Cardiovascular/Chest: Present: normal peripheral pulses, no chest tenderness, edema Peripheral Pulses: dorsalis-pedis (R): 2+, dorsalis-pedis (L): 2+ Abdomen: Present: Normal bowel sounds, soft, nontender, nondistended, no rebound tenderness /Rectal: Present: Exam deferred Extremity: Present: lower extremity edema, pedal edema, slow capillary refill, swelling. Absent: normal range of motion Skin Exam: Present: no cyanosis, cool/dry Neurologic: Present: oriented x 3 Appearance: Present: appropriate appearance, appropriate insight Eye contact: Present: cooperative, good eye contact Thoughts: Present: normal thought pattern, no apparent hallucination Diagnostic Studies: Laboratory Results Blood Type A Positive 02/12/17 19:10 Antibody Screen Negative 02/12/17 19:10 Crossmatch See Detail 02/12/17 19:10 Assessment/Plan - Narrative Narrative: Acute on chronic anemia- secondary to chronic kidney disease On adm hgb 6.8 and pt asymptomatic 2UPRBC and repeat H/H IV Lasix between transfusion and monitor vital signs and weight daily. Pt denies active bleeding Chronic renal failure Bun/Cre 49/3.86, GFR 12 at baseline pt is seen by supervisor detasseling crew in [place], she has appt tomorrow. Hypothyroidism- stable Continue with home medications Chronic pain- stable continue with home medications Code status: Full VTE ppx:Ambulate GI ppx: pepcid Previous records reviewed Time 45 minutes - Assessment/Plan (1) Severe anemia Problem: Acute (2) Chronic renal failure, stage 5 Problem: Chronic (3) Vitamin B12 deficiency Problem: Acute (4) Chronic pain Problem: Chronic QualifierTitle: Chronic pain type: chronic pain syndrome Qualified Code(s ): G89.4 - Chronic pain syndrome (5) Hypothyroidism Problem: Chronic QualifierTitle: Hypothyroidism type: acquired Qualified Code(s): E03.9 - Hypothyroidism, unspecified <Flaquito Olivia - Last Filed: 02/13/17 13:09> Immunizations: IMMUNIZATION HX Immunizations Up to Date Yes History of Influenza Vaccine Yes Hx Pneumococcal Vaccination Yes Exam - Exam Vital Signs: Vital Signs - Last Taken Temp 36.8 C 02/13/17 07:00 Pulse 72 02/13/17 08:30 Resp 18 02/13/17 07:00 BP 111/52 02/13/17 08:30 Pulse Ox 95 02/13/17 07:00 Diagnostic Studies: Abnormal Lab Results 02/13/17 02/13/17 Range/Units 05:40 05:40 RBC 2.80 L (4.2-5.4) M/mm3 Hgb 8.4 L (12.5-16.0) gm/dL Hct 25.9 L (37.0-47.0) % RDW 16.0 H (11.5-14.0) % Plt Count 132 L (150-450) K/mm3 MPV 13.6 H (6.0-9.5) fl Immature Gran % (Auto) 0.50 H (0.001-0.429) % Monocytes % 9.5 H (0.0-9) % Eosinophils % 4.7 H (0.0-3.0) % Lymphocytes # 1.2 L (1.5-3.5) k/mm3 BUN 44 H (3-23) mg/dL Creatinine 3.59 H (0.4-1.4) mg/dL Est GFR (Non-Af Amer) 13 L (60-130) mL/min Calcium 7.7 L (7.9-10.9) mg/dL Laboratory Results WBC 5.6 K/mm3 (4.0-10.5) D 02/13/17 05:40 RBC 2.80 M/mm3 (4.2-5.4) L 02/13/17 05:40 Hgb 8.4 gm/dL (12.5-16.0) L 02/13/17 05:40 Hct 25.9 % (37.0-47.0) L 02/13/17 05:40 MCV 92.5 fl (78-100) 02/13/17 05:40 MCH 30.0 pg (27-31) 02/13/17 05:40 MCHC 32.4 g/dl (32-36) 02/13/17 05:40 RDW 16.0 % (11.5-14.0) H 02/13/17 05:40 Plt Count 132 K/mm3 (150-450) L 02/13/17 05:40 MPV 13.6 fl (6.0-9.5) H 02/13/17 05:40 Immature Gran % (Auto) 0.50 % (0.001-0.429) H 02/13/17 05:40 Immature Gran # (Auto) 0.03 K/mm3 (0.000-0.0310) 02/13/17 05:40 Neutrophils % 63.7 % (42-75.0) 02/13/17 05:40 Lymphocytes % 20.9 % (20-51) 02/13/17 05:40 Monocytes % 9.5 % (0.0-9) H 02/13/17 05:40 Eosinophils % 4.7 % (0.0-3.0) H 02/13/17 05:40 Basophils % 0.7 % (0.0-1.0) 02/13/17 05:40 Nucleated RBC % 0.0 k/mm3 (0-1) 02/13/17 05:40 Neutrophils # 3.6 K/mm3 (1.3-6.0) 02/13/17 05:40 Lymphocytes # 1.2 k/mm3 (1.5-3.5) L 02/13/17 05:40 Monocytes # 0.5 k/mm3 (0.0-1.0) 02/13/17 05:40 Eosinophils # 0.3 k/mm3 (0.0-0.7) 02/13/17 05:40 Absolute Basophils 0.0 k/mm3 (0.0-0.1) 02/13/17 05:40 Sodium 142 mmol/L (132-142) 02/13/17 05:40 Plasma Sodium 142 mmol/L (130-142) 02/13/17 05:40 Potassium 4.3 mmol/L (3.4-4.6) 02/13/17 05:40 Chloride 106 mmol/L (97-106) 02/13/17 05:40 Carbon Dioxide 26.9 mmol/L (24-32.6) 02/13/17 05:40 Anion Gap 13.4 mmol/L (6.8-13.8) 02/13/17 05:40 BUN 44 mg/dL (3-23) H 02/13/17 05:40 Creatinine 3.59 mg/dL (0.4-1.4) H 02/13/17 05:40 Est GFR (Non-Af Amer) 13 mL/min (60-130) L 02/13/17 05:40 BUN/Creatinine Ratio 12.3 (9.0-21.6) 02/13/17 05:40 Random Glucose 102 mg/dL (70-110) 02/13/17 05:40 Calcium 7.7 mg/dL (7.9-10.9) L 02/13/17 05:40 Blood Type A Positive 02/12/17 19:10 Antibody Screen Negative 02/12/17 19:10 Crossmatch See Detail 02/12/17 19:10 Assessment/Plan - Narrative Narrative: Had planned for bone marrow stimulant, but as it turned out, count was too low, so at this time, require actual transfusion, and will return for bone marrow stimulation at a later time. I personally directed all of our nurse practitioner hospitalist care for this patient. Her outpatient nephrology appointment will be rescheduled. - Assessment/Plan (1) Anemia of chronic disease Problem: Chronic (2) Severe anemia Problem: Acute (3) Chronic renal failure, stage 5 Problem: Chronic (4) Sensorineural hearing loss Problem: Chronic Qualifiers: Laterality: bilateral Qualified Code(s): H90.3 - Sensorineural hearing loss , bilateral (5) Vitamin B12 deficiency Problem: Chronic (6) Allergic rhinitis Problem: Chronic Qualifiers: Chronicity: chronic Allergic rhinitis trigger: unspecified Allergic rhinitis seasonality: unspecified seasonality Qualified Code(s): J30.9 - Allergic rhinitis, unspecified (7) Bladder cancer Problem: Chronic Qualifiers: Bladder location: unspecified site Qualified Code(s): C67.9 - Malignant neoplasm of bladder, unspecified (8) Fibromyalgia Problem: Chronic (9) Hyperlipidemia Problem: Chronic Qualifiers: Hyperlipidemia type: unspecified Qualified Code(s): E78.5 - Hyperlipidemia , unspecified (10) Hypothyroidism Problem: Chronic Qualifiers: Hypothyroidism type: acquired Qualified Code(s): E03.9 - Hypothyroidism, unspecified (11) Narcolepsy Problem: Chronic Qualifiers: 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
[2017-02-12] MEDS ORDERED: MOMETASONE FUROATE 120 SPRAY INHALER NS PRN (22:29)
[2017-02-12] MEDS ORDERED: traMADol HCL 50 MG TABLET PO PRN (22:29)
[2017-02-12] MEDS ORDERED: LIDOCAINE 1 PATCH ADH..PATCH TP PRN (22:29)
[2017-02-12] MEDS ORDERED: CYPROHEPTADINE HCL 4 MG TABLET PO PRN (22:29)
[2017-02-12] MEDS ORDERED: FUROSEMIDE 10 MG/ML VIAL IV ONE (22:32)
[2017-02-12] MEDS ORDERED: REMOVE LIDOCAINE TP PRN (23:15)
[2017-02-12] MEDS ORDERED: BISACODYL 5 MG TABLET.DR PO PRN (23:21)
[2017-02-12] MEDS ORDERED: NICOTINE 21 MG PATC TD SCH (23:30)
[2017-02-13 05:53] LABS: Hematocrit 25.9 % (37.0-47.0); Hemoglobin 8.4 gm/dL (12.5-16.0); Mean Cell Volume 92.5 fl (78-100); Mean Corpuscular Hgb Conc 32.4 g/dl (32-36); Mean Platelet Volume 13.6 fl (6.0-9.5); Neutrophil # 3.6 K/mm3 (1.3-6.0); Neutrophil % 63.7 % (42-75.0); Platelet Count 132 K/mm3 (150-450); White Blood Count 5.6 K/mm3 (4.0-10.5)
[2017-02-13 05:57] LABS: Anion Gap 13.4 mmol/L (6.8-13.8); BUN/Creatinine Ratio 12.3 (9.0-21.6); Calcium * 7.7 mg/dL (7.9-10.9); Carbon Dioxide 26.9 mmol/L (24-32.6); Estimated Creat Clear 15.5; Potassium 4.3 mmol/L (3.4-4.6)
[2017-02-13] MEDS ORDERED: MOMETASONE FUROATE 120 SPRAY INHALER NS PRN (06:57)
[2017-02-13] MEDS ORDERED: LEVOTHYROXINE SODIUM 75 MCG TABLET PO SCH (07:00)
[2017-02-13] MEDS ORDERED: PANTOPRAZOLE SODIUM 40 MG TABLET.EC PO SCH (07:00)
--- NOTE | 2017-02-13 08:05 | DS ---
(1) Anemia of chronic disease Problem: Chronic (2) Severe anemia Problem: Acute (3) Chronic renal failure, stage 5 Problem: Chronic (4) Sensorineural hearing loss Problem: Chronic Qualifiers: Laterality: bilateral Qualified Code(s): H90.3 - Sensorineural hearing loss , bilateral (5) Vitamin B12 deficiency Problem: Chronic (6) Allergic rhinitis Problem: Chronic Qualifiers: Chronicity: chronic Allergic rhinitis trigger: unspecified Allergic rhinitis seasonality: unspecified seasonality Qualified Code(s): J30.9 - Allergic rhinitis, unspecified (7) Bladder cancer Problem: Chronic Qualifiers: Bladder location: unspecified site Qualified Code(s): C67.9 - Malignant neoplasm of bladder, unspecified (8) Fibromyalgia Problem: Chronic (9) Hyperlipidemia Problem: Chronic Qualifiers: Hyperlipidemia type: unspecified Qualified Code(s): E78.5 - Hyperlipidemia , unspecified (10) Hypothyroidism Problem: Chronic Qualifiers: Hypothyroidism type: acquired Qualified Code(s): E03.9 - Hypothyroidism, unspecified (11) Narcolepsy Problem: Chronic Qualifiers: 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 Procedures Performed: none Discharge Disposition: Home self care Disposition: Home self-care Condition: Stable Referrals: Flaquito Olivia MD [Primary Care Provider] - Complete Home Medications List: Complete Home Medication List: Cholecalciferol [Vitamin D] 1,000 unit PO DAILY 06/27/16 Cyanocobalamin (Vitamin B-12) [B-12 Kit] 1,000 mcg IJ Q30D 06/27/16 Furosemide [Lasix] 160 mg PO BID 06/27/16 Levothyroxine Sodium [Synthroid] 75 mcg PO DAILY 06/27/16 Loratadine [Claritin] 10 mg PO DAILY 06/27/16 Modafinil [Provigil] 200 mg PO QAM 06/27/16 Mometasone Furoate [Nasonex] 2 spray NS DAILY PRN 06/27/16 Montelukast Sodium [Singulair] 10 mg PO QPM 06/27/16 Pantoprazole Sodium 40 mg PO DAILY 06/27/16 Phentermine HCl [Adipex-P] 37.5 mg PO DAILY 06/27/16 Pregabalin [Lyrica] 150 mg PO BID 06/27/16 Solifenacin Succinate [Vesicare] 10 mg PO DAILY 06/27/16 traMADol HCL [Ultram] 100 mg PO Q12H PRN 07/03/16 Folic Acid 2 mg PO DAILY 10/03/16 Potassium Chloride [K-Dur] 30 meq PO TID 10/03/16 Clotrimazole [Itch Relief] 15 gm TP DAILY 12/05/16 Ascorbic Acid [Vitamin C] 500 mg PO DAILY 02/12/17 Aspirin 81 mg PO DAILY 02/12/17 Bisacodyl [Laxative] 5 mg PO DAILY PRN 02/12/17 Cyproheptadine HCl 4 mg PO DAILY PRN 02/12/17 Lidocaine [Lidoderm 5%] 2 patch TP DAILY PRN 02/12/17 Multivitamin [Multivitamins] 1 each PO DAILY 02/12/17 [place]-3S/Dha/Epa/Fish Oil [[place]-3 Fish Oil 1,000 mg Sfgl] 1 each PO DAILY 02/12 Spironolact/Hydrochlorothiazid [Aldactazide 50-50 Tablet] 0.5 each PO DAILY
[2017-02-13 08:31] VITALS: BP 111/52
[2017-02-13] MEDS ORDERED: POTASSIUM CHLORIDE 10 MEQ TABLET.SA PO SCH (09:00)
[2017-02-13] MEDS ORDERED: OMEGA-3 FATTY ACIDS 1 CAP CAPSULE PO SCH (09:00)
[2017-02-13] MEDS ORDERED: CLOTRIMAZOLE 15 APPL TUBE TP SCH (09:00)
[2017-02-13] MEDS ORDERED: ASCORBIC ACID 500 MG TABLET PO SCH (09:00)
[2017-02-13] MEDS ORDERED: POTASSIUM CHLORIDE 20 MEQ TABLET.SA PO SCH (09:00)
[2017-02-13] MEDS ORDERED: LORATADINE 10 MG TABLET PO SCH (09:00)
[2017-02-13] MEDS ORDERED: SOLIFENACIN SUCCINATE 10 MG TABLET PO SCH (09:00)
[2017-02-13] MEDS ORDERED: PREGABALIN 75 MG CAPSULE PO SCH (09:00)
[2017-02-13] MEDS ORDERED: MULTIVITAMINS 1 CAP CAPSULE PO SCH (09:00)
[2017-02-13] MEDS ORDERED: ASPIRIN 81 MG TAB.CHEW PO SCH (09:00)
[2017-02-13] MEDS ORDERED: FUROSEMIDE 80 MG TABLET PO SCH (09:00)
[2017-02-13] MEDS ORDERED: CHOLECALCIFEROL 1,000 UNIT CAPSULE PO SCH (09:00)
[2017-02-13] MEDS ORDERED: FOLIC ACID 1 MG TABLET PO SCH (09:00)
[2017-02-13] MEDS ORDERED: MONTELUKAST SODIUM 10 MG TABLET PO SCH (17:00)
[2017-02-23] MEDS ORDERED: CYANOCOBALAMIN 1,000 MCG/ML VIAL IJ SCH ×2 (09:00→22:30)
== END 2017-02-13 09:45 | disposition home or self-care (01) ==
LOC: ER 18:18 → MS 19:45
PROVIDERS: ADMIT Allergy & Immunology; ATTEND Allergy & Immunology
DX: N18.5 Chronic kidney disease, stage 5 (principal); D63.1 Anemia in chronic kidney disease; D51.9 Vitamin B12 deficiency anemia, unspecified; M79.7 Fibromyalgia; E03.9 Hypothyroidism, unspecified; E78.5 Hyperlipidemia, unspecified; G47.419 Narcolepsy without cataplexy; M19.90 Unspecified osteoarthritis, unspecified site; M85.80 Other specified disorders of bone density and structure, unspecified site; I51.7 Cardiomegaly; C67.9 Malignant neoplasm of bladder, unspecified; Z68.26 Body mass index [BMI] 26.0-26.9, adult
CPT/HCPCS: 36415; 36430; 80048; 80069; 83550; 83735; 85025; 86850; 86900; 96374; 99285; G0378; P9016

== ENCOUNTER 2017-04-11 12:05 | Day surgery (SDC) | payer MEDICARE, MEDICAID ==
[~2017-04-11 12:05] MED LIST changes: +LEVOFLOXACIN/D5W 250 MG/50 ML BAG IV PRN; -METOCLOPRAMIDE HCL 5 MG/ML VIAL IV PRN; -MORPHINE SULFATE 2 MG/ML DISP.SYRIN IV PRN; -ONDANSETRON HCL/PF 2 MG/ML VIAL IV PRN; -OXYBUTYNIN CHLORIDE 5 MG TABLET PO PRN; -oxyCODONE HCL/ACETAMINOPHEN 1 TAB TABLET PO PRN
[2017-04-11] MEDS ORDERED: RINGER'S SOLUTION,LACTATED 1,000 ML IV ONE (12:30)
--- NOTE | 2017-04-11 13:34 | OR ---
Operative Report - Dictated Report Narrative: Location: Main OR Anesthesia: General Surgeon: Dr. Benitez Preoperative diagnosis: Right endopyelotomy stent and history of bladder cancer Postoperative diagnosis: Successful removal of stent. No evidence of recurrent TCC Procedure: #1 Cystoscopy with bladder washing for cytology and culture #2 removal of right endopyelotomy stent Indications: 67-year-old female with renal failure, history of low-grade TCC post BCG and bilateral hydronephrosis post right endopyelotomy with indwelling endopyelotomy stent. Description: Consent obtained. Patient brought to the operating room where general endotracheal anesthesia was induced. Placed in the dorsal lithotomy position. Prepped and draped. Timeout taken. Rigid cystoscope introduced into the bladder with ease and quick cystoscopy revealed some debris but no obvious tumors or stones. Right endopyelotomy stent was identified grasped pulled per urethra. Bladder washing was obtained sent for cytology and culture. I only had 30 lens available for the cystoscopy but bladder anatomy was such that I was able to see pretty much the whole bladder without any evidence of recurrent TCC. She had a little bit of erythema from the stent near the right ureter. For some reason the 70 lenses would not white balance and the external appearances such that it looks like the lens may be burnt. Would not give a clear picture during cystoscopy. Specimen: Washing for cytology and culture EBL: 0 ml Condition: tolerated procedure Important findings: No recurrent TCC. Successful removal of right endopyelotomy stent Follow-up: I will see her in 2-3 weeks with an ultrasound/BMP and UA prior. She will need to start maintenance therapy in the not too distant future
[2017-04-11 14:41] VITALS: BP 124/61
== END 2017-04-11 12:06 | disposition home or self-care (01) ==
LOC: AMB 12:05
PROVIDERS: ATTEND Urology
PROC: 0TPB8DZ Removal of Intraluminal Device from Bladder, Via Natural or Artificial Opening Endoscopic (ICD-10-PCS; principal; 2017-04-11 13:00)
DX: Z46.6 Encounter for fitting and adjustment of urinary device (principal); N39.0 Urinary tract infection, site not specified; I13.0 Hypertensive heart and chronic kidney disease with heart failure and stage 1 through stage 4 chronic kidney disease, or unspecified chronic kidney disease; I50.9 Heart failure, unspecified; N18.3 Chronic kidney disease, stage 3 (moderate); D63.1 Anemia in chronic kidney disease; K21.9 Gastro-esophageal reflux disease without esophagitis; E78.5 Hyperlipidemia, unspecified; E03.9 Hypothyroidism, unspecified; M19.90 Unspecified osteoarthritis, unspecified site; F17.210 Nicotine dependence, cigarettes, uncomplicated; Z68.24 Body mass index [BMI] 24.0-24.9, adult

== ENCOUNTER 2017-04-22 11:45 | Observation (INO) | payer MEDICARE, MEDICAID ==
--- NOTE | 2017-04-22 12:28 | ERNOTE ---
Medical Problem HPI - General Chief Complaint: General Assessment Time Seen by Provider: 04/22/17 12:11 Source: patient Exam Limitations: no limitations - Immun/Allergies/Home Medications Immunizations: IMMUNIZATION HX Immunizations Up to Date Yes History of Influenza Vaccine Yes Hx Pneumococcal Vaccination Yes Allergies/Adverse Reactions: Allergies Iodinated Contrast- Oral and IV Dye [Iodinated Contrast Media - IV Dye] Allergy (Intermediate, Verified 04/22/17 11:54) DIFF BREATHING Penicillins Allergy (Mild, Verified 04/22/17 11:54) Hives Home Medications: HOME MEDICATIONS Cholecalciferol [Vitamin D] 1,000 unit PO DAILY 06/27/16 [Last Taken 12/05/16 09 :00] Cyanocobalamin (Vitamin B-12) [B-12 Kit] 1,000 mcg IJ Q30D 06/27/16 [Last Taken Unknown] Furosemide [Lasix] 160 mg PO BID 06/27/16 [Last Taken Unknown] Levothyroxine Sodium [Synthroid] 75 mcg PO DAILY 06/27/16 [Last Taken 04/11/17 09:00] Loratadine [Claritin] 10 mg PO DAILY 06/27/16 [Last Taken 12/05/16 09:00] Mometasone Furoate [Nasonex] 2 spray NS HS 06/27/16 [Last Taken 12/05/16 09:00] Montelukast Sodium [Singulair] 10 mg PO QPM 06/27/16 [Last Taken 12/04/16 21:00] Pantoprazole Sodium 40 mg PO DAILY 06/27/16 [Last Taken 12/05/16 09:00] Pregabalin [Lyrica] 150 mg PO BID 06/27/16 [Last Taken 04/11/17 09:00] Solifenacin Succinate [Vesicare] 10 mg PO DAILY 06/27/16 [Last Taken 12/04/16 2100] traMADol HCL [Ultram] 50 mg PO QID PRN 07/03/16 [Last Taken Unknown] Folic Acid 2 mg PO DAILY 10/03/16 [Last Taken 12/05/16 09:00] Bisacodyl [Laxative] 5 mg PO DAILY PRN 02/12/17 [Last Taken Unknown] Cyproheptadine HCl 4 - 8 mg PO TID PRN 02/12/17 [Last Taken Unknown] Lidocaine [Lidoderm 5%] 2 patch TP DAILY PRN 02/12/17 [Last Taken Unknown] [place]-3S/Dha/Epa/Fish Oil [[place]-3 Fish Oil 1,000 mg Sfgl] 1 each PO DAILY 02/12 [Last Taken Unknown] Ascorbic Acid [Vitamin C] 500 mg PO DAILY 04/10/17 [Last Taken Unknown] Aspirin [Aspirin Enteric Coated] 81 mg PO DAILY 04/10/17 [Last Taken Unknown] Clotrimazole/Betamethasone Dip [Clotrimazole-Betamethasone Crm] 1 appl TP DAILY 04/10/17 [Last Taken Unknown] Fenofibrate Nanocrystallized [Tricor] 145 mg PO DAILY 04/10/17 [Last Taken Unknown] Multivitamin with Minerals [Multivitamins with Minerals] 1 each PO DAILY [Last Taken Unknown] Potassium Chloride [Klor-Con 10] 30 meq PO TID 04/10/17 [Last Taken Unknown] Spironolact/Hydrochlorothiazid [Aldactazide 25-25] 0.5 tab PO DAILY 04/10/17 [ Last Taken Unknown] Hydrochlorothiazide [Hydrodiuril] 25 mg PO DAILY 04/22/17 [Last Taken Unknown] - History of Present History Narrative: Patient has a history of anemia for years. She had extensive testing for it in the past and no clear cause has been identified. Recently she was diagnosed with renal failure, her anemia has worsened and she had to get transfused a few time. She had blood work done 04/18 and was told to come to the hospital as her counts were off again. Due to the she waited to come in till today. She denies any source of bleeding, she feels very fatigued, no energy. Review of Systems - Review of Systems Constitutional: Present: fatigue, malaise. Absent: recent illness ENT: Absent: nose congestion, sore throat Respiratory: Absent: shortness of breath Cardiology: Absent: chest pain Gastrointestinal/Abdominal: Absent: nausea, vomiting, abdominal pain Genitourinary: Present: See HPI Musculoskeletal: Absent: back pain Neurological: Present: headache - slight - Patient's Past Medical History Patient History - Medical: Anemia, Anxiety, Arthritis, Chronic Pain, Depression , Fibromyalgia, GERD, Hypothyroidism, Osteoarthritis, Renal Disease Patient History - Cardiac/Respiratory: CHF, Hyperlipidemia Patient History - Cancer: Bladder, Chemotherapy history Patient History - Surgical Procedures: Cancer Surgery, Cataracts, Cholecystectomy, Colonoscopy, EGD, Other, Orthopedic, Tubal Ligation, T & A, Urology Patient History - Other: None - Family History Mother Family History - Medical: Diabetes Type 2 Family History - Cardiac/Respiratory: No pertinent hx Family History - Cancer: No pertinent family hx Father Family History - Medical: , No pertinent hx Family History - Cardiac/Respiratory: CHF Family History - Cancer: Bladder - Social History Abuse History: No History of abuse Psych History: Current tx/ever been on anti-depressants or anti-anxiety meds, Hx of Anxiety, Hx of Depression - Immunizations Immunizations Up to Date: Yes Hx Pneumococcal Vaccination: Yes History of Influenza Vaccine: Yes Physical Exam - Physical Exam General Appearance: Present: wd/wn, alert, no apparent distress Head Exam: Present: normal inspection Respiratory: Present: no respiratory distress, normal breath sounds, no accessory muscle use, lungs clear Cardiovascular/Chest: Present: regular rate, rhythm, no murmur Extremity Exam: Present: pedal edema Neurological Exam: Present: alert, oriented, normal mood/affect Skin Exam: Present: warm/dry, pallor ED Progress - Vital Signs Patient's Vital Signs:: I have reviewed the patient's vital signs. Vital Signs: Vital Signs 04/22/17 11:51 Temperature 36.6 C Pulse Rate 74 Respiratory 14 Rate Blood Pressure 153/74 O2 Sat by Pulse 100 Oximetry - Progress/Reassessment Chief Complaint: General Assessment Progress Note-Subjective: 04/22/17 13:16 discussed test result with patient, advised transfusion, patient agreed 04/22/17 13:16 discussed with shanta Correa to admit for observation and transfused two units of RPCs Departure Clinical Impression: Severe anemia - Departure Disposition: [facility] Condition: Stable
[2017-04-22 12:41] LABS: Mean Cell Volume 104.7 fl (78-100); Mean Corpuscular Hgb Conc 31.5 g/dl (32-36); Mean Platelet Volume 12.8 fl (6.0-9.5); Neutrophil % 70.3 % (42-75.0); Platelet Count 87 K/mm3 (150-450); Red Blood Count 1.91 M/mm3 (4.2-5.4); Red Cell Distribution Width 15.4 % (11.5-14.0); White Blood Count 5.6 K/mm3 (4.0-10.5)
[2017-04-22 12:45] LABS: Hemoglobin 6.3 gm/dL (12.5-16.0)
[2017-04-22 12:56] LABS: Anion Gap 15.6 mmol/L (6.8-13.8); BUN/Creatinine Ratio 12.6 (9.0-21.6); Bilirubin, Total 0.3 mg/dL (0.0-1.1); Ca. Corrected For Albumin 8.2 mg/dL (8.4-10.2); Calcium * 7.7 mg/dL (7.9-10.9); Carbon Dioxide 24.2 mmol/L (24-32.6); Potassium 3.8 mmol/L (3.4-4.6); Total Protein 5.9 gm/dL (6.2-8.2)
[2017-04-22] MEDS ORDERED: FUROSEMIDE 10 MG/ML VIAL IV ONE ×2 (13:14→19:00)
[2017-04-22] MEDS ORDERED: BISACODYL 5 MG TABLET.DR PO PRN (14:35)
[2017-04-22] MEDS ORDERED: LIDOCAINE 1 PATCH ADH..PATCH TP PRN (14:35)
[2017-04-22] MEDS ORDERED: NICOTINE 21 MG PATC TD SCH (14:45)
--- NOTE | 2017-04-22 15:02 | HP ---
Chief Complaint - Chief Complaint Date of Service: 04/22/17 Time of Service: 14:43 Chief Complaint: fatigue, dizziness, SOB. History of Present Illness: 67yo WF with PMH significant for stage V renal dz, chronic anemia of unknown etiology, but takes aranesp for it and receives periodic transfusions, was in her usually state of health until a few days [employer] when she began feeling more and more tired. She denies GI sx of heartburn, N/V/hematemesis/melena/ hematochezia or Hematuria, bruising or other issues. she's had not med changes lately. Due to sx she presented to ER and was found to have Hb 6.3, previous: Laboratory Tests 02/21/17 04/18/17 04/22/17 16:26 14:30 12:35 Hgb 8.8 L 7.7 L* 6.3 L* She knows she receives shots for her anemia, though not sure of the name. She thinks her meds might be causing some issues when I ask her about such things, but states no one seems to listen to her in this regard. She has stopped some medications that she knows won't hurt her to stop. She is being admitted to obs for transfusion given her physical sx and Hb 6.3 and rapid drop from 7.7. - Patient's Past Medical History Patient History - Medical: Anemia, Anxiety, Arthritis, Chronic Pain, Depression , Fibromyalgia, GERD, Hypothyroidism, Osteoarthritis, Renal Disease Patient History - Cardiac/Respiratory: CHF, Hyperlipidemia Patient History - Cancer: Bladder, Chemotherapy history Patient History - Surgical Procedures: Cancer Surgery, Cataracts, Cholecystectomy, Colonoscopy, EGD, Other, Orthopedic, Tubal Ligation, T & A, Urology Patient History - Other: None - Family History Mother Family History - Medical: Diabetes Type 2 Family History - Cardiac/Respiratory: No pertinent hx Family History - Cancer: No pertinent family hx Father Family History - Medical: , No pertinent hx Family History - Cardiac/Respiratory: CHF Family History - Cancer: Bladder - Social History Abuse History: No History of abuse Psych History: Current tx/ever been on anti-depressants or anti-anxiety meds, Hx of Anxiety, Hx of Depression Smoking Status: Current every day smoker Have you smoked in the past 12 months: Yes Alcohol Use: rarely Drug Use: none - Immunizations Immunizations Up to Date: Yes Hx Pneumococcal Vaccination: Yes History of Influenza Vaccine: No - pt. refused in clinic Review Of Systems (GEN) - Review of Systems Generalized/Overall Review: Present: Weakness, Chills, Malaise, Fatigue EENTM: Present: No Symptoms Reported Respiratory: Present: Shortness of Breath. Absent: Cough Cardiac: Present: No Symptoms Reported Abdominal: Present: No Symptoms Reported Genitourinary: Present: No Symptoms Reported Musculoskeletal: Present: No Symptoms Reported Neurological: Present: No Symptoms Reported Skin: Present: Dryness, Rash Endocrine: Present: No Symptoms Reported Immunizations: IMMUNIZATION HX Immunizations Up to Date Yes History of Influenza Vaccine Yes Hx Pneumococcal Vaccination Yes Allergies/Adverse Reactions: Allergies Allergy/AdvReac Type Severity Reaction Status Date / Time Iodinated Contrast- Oral and Allergy Intermediate DIFF Verified 04/22/17 11:54 IV Dye BREATHING [Iodinated Contrast Media - IV Dye] Penicillins Allergy Mild Hives Verified 04/22/17 11:54 Home Medications: HOME MEDICATIONS Cholecalciferol [Vitamin D] 1,000 unit PO DAILY 06/27/16 [Last Taken 12/05/16 09 :00] Cyanocobalamin (Vitamin B-12) [B-12 Kit] 1,000 mcg IJ Q30D 06/27/16 [Last Taken Unknown] Furosemide [Lasix] 160 mg PO BID 06/27/16 [Last Taken Unknown] Levothyroxine Sodium [Synthroid] 75 mcg PO DAILY 06/27/16 [Last Taken 04/11/17 09:00] Loratadine [Claritin] 10 mg PO DAILY 06/27/16 [Last Taken 12/05/16 09:00] Mometasone Furoate [Nasonex] 2 spray NS HS 06/27/16 [Last Taken 12/05/16 09:00] Montelukast Sodium [Singulair] 10 mg PO QPM 06/27/16 [Last Taken 12/04/16 21:00] Pantoprazole Sodium 40 mg PO DAILY 06/27/16 [Last Taken 12/05/16 09:00] Pregabalin [Lyrica] 150 mg PO BID 06/27/16 [Last Taken 04/11/17 09:00] Solifenacin Succinate [Vesicare] 10 mg PO DAILY 06/27/16 [Last Taken 12/04/16 2100] traMADol HCL [Ultram] 50 mg PO QID PRN 07/03/16 [Last Taken Unknown] Folic Acid 2 mg PO DAILY 10/03/16 [Last Taken 12/05/16 09:00] Bisacodyl [Laxative] 5 mg PO DAILY PRN 02/12/17 [Last Taken Unknown] Cyproheptadine HCl 4 - 8 mg PO TID PRN 02/12/17 [Last Taken Unknown] Lidocaine [Lidoderm 5%] 2 patch TP DAILY PRN 02/12/17 [Last Taken Unknown] [place]-3S/Dha/Epa/Fish Oil [[place]-3 Fish Oil 1,000 mg Sfgl] 1 each PO DAILY 02/12 [Last Taken Unknown] Ascorbic Acid [Vitamin C] 500 mg PO DAILY 04/10/17 [Last Taken Unknown] Aspirin [Aspirin Enteric Coated] 81 mg PO DAILY 04/10/17 [Last Taken Unknown] Clotrimazole/Betamethasone Dip [Clotrimazole-Betamethasone Crm] 1 appl TP DAILY 04/10/17 [Last Taken Unknown] Fenofibrate Nanocrystallized [Tricor] 145 mg PO DAILY 04/10/17 [Last Taken Unknown] Multivitamin with Minerals [Multivitamins with Minerals] 1 each PO DAILY [Last Taken Unknown] Potassium Chloride [Klor-Con 10] 30 meq PO TID 04/10/17 [Last Taken Unknown] Spironolact/Hydrochlorothiazid [Aldactazide 25-25] 0.5 tab PO DAILY 04/10/17 [ Last Taken Unknown] Hydrochlorothiazide [Hydrodiuril] 25 mg PO DAILY 04/22/17 [Last Taken Unknown] Exam - Exam Vital Signs: Vital Signs - Last Taken Temp 36.7 C 04/22/17 14:14 Pulse 73 04/22/17 14:14 Resp 16 04/22/17 14:14 BP 146/68 04/22/17 14:14 Pulse Ox 100 04/22/17 14:14 Constitutional: Present: Alert, Oriented x3, Cooperative, Other - pale and tired appearing ENT Exam: Present: hearing grossly normal Eye Exam: bilateral eye: normal inspection, PERRL, EOMI, conjunctivae pale Neck: Present: supple Respiratory: Present: lungs clear, normal breath sounds, expiration (prolonged) Cardiovascular/Chest: Present: regular rate, rhythm, no murmur Abdomen: Present: Normal bowel sounds, soft, nontender, nondistended, no rebound tenderness, no hepatospenomegaly Extremity: Present: calf tenderness, inflammation - left LE calf and foot., lower extremity edema, pedal edema Skin Exam: Present: pallor Neurologic: Present: normal mood/affect, oriented x 3 Appearance: Present: appropriate appearance, appropriate insight, neat Eye contact: Present: cooperative, good eye contact, normal speech Thoughts: Present: normal thought pattern, no apparent hallucination Diagnostic Studies: Laboratory Results WBC 5.6 K/mm3 (4.0-10.5) 04/22/17 12:35 RBC 1.91 M/mm3 (4.2-5.4) L 04/22/17 12:35 Hgb 6.3 gm/dL (12.5-16.0) L* 04/22/17 12:35 Hct 20.0 % (37.0-47.0) L* 04/22/17 12:35 MCV 104.7 fl (78-100) H 04/22/17 12:35 MCH 33.0 pg (27-31) H 04/22/17 12:35 MCHC 31.5 g/dl (32-36) L 04/22/17 12:35 RDW 15.4 % (11.5-14.0) H 04/22/17 12:35 Plt Count 87 K/mm3 (150-450) L 04/22/17 12:35 MPV 12.8 fl (6.0-9.5) H 04/22/17 12:35 Immature Gran % (Auto) 0.40 % (0.001-0.429) 04/22/17 12:35 Immature Gran # (Auto) 0.02 K/mm3 (0.000-0.0310) 04/22/17 12:35 Neutrophils % 70.3 % (42-75.0) 04/22/17 12:35 Lymphocytes % 18.3 % (20-51) L 04/22/17 12:35 Monocytes % 7.8 % (0.0-9) 04/22/17 12:35 Eosinophils % 2.8 % (0.0-3.0) 04/22/17 12:35 Basophils % 0.4 % (0.0-1.0) 04/22/17 12:35 Nucleated RBC % 0.0 k/mm3 (0-1) 04/22/17 12:35 Neutrophils # 4.0 K/mm3 (1.3-6.0) 04/22/17 12:35 Lymphocytes # 1.0 k/mm3 (1.5-3.5) L 04/22/17 12:35 Monocytes # 0.4 k/mm3 (0.0-1.0) 04/22/17 12:35 Eosinophils # 0.2 k/mm3 (0.0-0.7) 04/22/17 12:35 Absolute Basophils 0.0 k/mm3 (0.0-0.1) 04/22/17 12:35 Sodium 144 mmol/L (132-142) H 04/22/17 12:35 Plasma Sodium 144 mmol/L (130-142) H 04/22/17 12:35 Potassium 3.8 mmol/L (3.4-4.6) 04/22/17 12:35 Chloride 108 mmol/L (97-106) H 04/22/17 12:35 Carbon Dioxide 24.2 mmol/L (24-32.6) 04/22/17 12:35 Anion Gap 15.6 mmol/L (6.8-13.8) H 04/22/17 12:35 BUN 61 mg/dL (3-23) H 04/22/17 12:35 Creatinine 4.84 mg/dL (0.4-1.4) H 04/22/17 12:35 Est GFR (Non-Af Amer) 10 mL/min (60-130) L 04/22/17 12:35 BUN/Creatinine Ratio 12.6 (9.0-21.6) 04/22/17 12:35 Random Glucose 86 mg/dL (70-110) 04/22/17 12:35 Calcium 7.7 mg/dL (7.9-10.9) L 04/22/17 12:35 Calcium Adj for Albumin 8.2 mg/dL (8.4-10.2) L 04/22/17 12:35 Total Bilirubin 0.3 mg/dL (0.0-1.1) 04/22/17 12:35 AST 17 U/L (0-48) 04/22/17 12:35 ALT 15 U/L (19-67) L 04/22/17 12:35 Alkaline Phosphatase 42 U/L (50-170) L 04/22/17 12:35 Total Protein 5.9 gm/dL (6.2-8.2) L 04/22/17 12:35 Albumin 3.0 gm/dl (3.4-5.0) L 04/22/17 12:35 Blood Type A Positive 04/22/17 12:45 Antibody Screen Negative 04/22/17 12:45 Crossmatch See Detail 04/22/17 12:45 Assessment/Plan - Assessment/Plan (1) Tobacco abuse Assessment: will do a nicotine patch while she is here. Problem: Chronic (2) Severe anemia Assessment: will transfuse 2 units PRBC's. will hold her diuretics, anti-histamines for now as these can cause anemias/pancytopenia's too. May need to restart due to her renal failure, but will see. Recheck CBC in am. Problem: Acute (3) Allergic rhinitis Assessment: hold antihistamines as they can cause pancytopenia's. Problem: Chronic Qualifiers: Chronicity: chronic Allergic rhinitis trigger: pollen (4) Bladder cancer Assessment: doubt this is cause of anemia as no hematuria reported and last scope a month ago showed no recurrence. BCG tx should not cause issues with anemia. Problem: Chronic Qualifiers: (5) Chronic renal failure, stage 5 Assessment: no changes for now. will recheck BUN/CR in am. continue outpt f/u with nephrology. Problem: Chronic (6) Vitamin B12 deficiency Assessment: continue outpt injections. Problem: Chronic (7) Cellulitis and abscess of left lower extremity Assessment: will do rocephin for now, changing to possibly cephalexin or cefdinir at time of discharge. Choosing this due to her renal failure and limitations with other abx regarding this. Problem: Acute (8) Discharge planning issues Assessment: hopefully can d/c in am. Problem: Acute
[2017-04-22] MEDS: traMADol HCL 50 MG TABLET PO PRN ×2 (15:35→22:48)
[2017-04-22] MEDS: PREGABALIN 75 MG CAPSULE PO SCH (20:22)
[2017-04-22] MEDS ORDERED: MOMETASONE FUROATE 120 SPRAY INHALER NS SCH (21:00)
[2017-04-22] MEDS ORDERED: MONTELUKAST SODIUM 10 MG TABLET PO SCH (21:00)
[2017-04-22] MEDS ORDERED: REMOVE PATCH 1 PATCH PATCH TP SCH (21:00)
[2017-04-22 23:24] LABS: Hematocrit 25.7 % (37.0-47.0); Hemoglobin 8.3 gm/dL (12.5-16.0)
[2017-04-23 05:46] LABS: Albumin * 2.7 gm/dl (3.4-5.0); Anion Gap 15.2 mmol/L (6.8-13.8); BUN/Creatinine Ratio 12.8 (9.0-21.6); Bilirubin, Total 0.3 mg/dL (0.0-1.1); Ca. Corrected For Albumin 8.3 mg/dL (8.4-10.2); Calcium * 7.6 mg/dL (7.9-10.9); Carbon Dioxide 22.3 mmol/L (24-32.6); Potassium 3.5 mmol/L (3.4-4.6); Total Protein 5.6 gm/dL (6.2-8.2)
[2017-04-23 06:33] VITALS: BP 134/68
[2017-04-23] MEDS ORDERED: PANTOPRAZOLE SODIUM 40 MG TABLET.EC PO SCH (07:00)
[2017-04-23] MEDS ORDERED: LEVOTHYROXINE SODIUM 75 MCG TABLET PO SCH (07:00)
--- NOTE | 2017-04-23 07:06 | DS ---
(1) Tobacco abuse Problem: Chronic (2) Severe anemia Problem: Acute (3) Allergic rhinitis Problem: Chronic Qualifiers: Chronicity: chronic Allergic rhinitis trigger: pollen (4) Bladder cancer Problem: Chronic Qualifiers: (5) Chronic renal failure, stage 5 Problem: Chronic (6) Vitamin B12 deficiency Problem: Chronic (7) Cellulitis and abscess of left lower extremity Problem: Acute (8) Discharge planning issues Problem: Acute Description of Stay: Pt. admitted due to symptomatic anemia and acute decrease in Hb. She does recall having had her furosemide doubled during this time due to increased LE edema. She was transfused 2 Units PRBC's and Hb went from 6.3 to 8.3. She still had some OROZCO and pleuritic CP complaints at time of discharge, but did feel better overall. Due to several meds she's on can cause pancytopenia, they were held while she was here, but because pt. states she can't live without them , will restart at d/c, though will reduce furosemide to 80mg daily, from the 80mg BID she was increased to and have her elevate her legs on her anti-gravity chair as this seems to help her based on her comments. She was found to have a LLE cellulitis and was given IV rocephin while here. The rubor, calor and dolor all improved slightly while she was here. Will continue her on cefdinir outpt. for this. Chronic kidney disease - remained stable. No changes. Tobacco abuse: nicotine patch used while here. Procedures Performed: none Discharge Disposition: Home self care Disposition: Home self-care Condition: Stable Discharge Activity: Activity as tolerated, Other - elevate legs throughout the day as much as possible in anti-gravity chair. Discharge Diet: General/regular food Referrals: Baldev Patterson MD [Staff Physician] - 05/01/17 (one time f/u visit for cellulitis, anemia, LE edema due to [facility] being away during this time.) Prescriptions (Any new or edited meds): Cefdinir [Omnicef] 300 mg PO Q12H #20 cap Furosemide [Lasix] 80 mg PO DAILY #30 tab Complete Home Medications List: Complete Home Medication List: Cholecalciferol [Vitamin D] 1,000 unit PO DAILY 06/27/16 Cyanocobalamin (Vitamin B-12) [B-12 Kit] 1,000 mcg IJ Q30D 06/27/16 Levothyroxine Sodium [Synthroid] 75 mcg PO DAILY 06/27/16 Loratadine [Claritin] 10 mg PO DAILY 06/27/16 Mometasone Furoate [Nasonex] 2 spray NS HS PRN 06/27/16 Montelukast Sodium [Singulair] 10 mg PO QPM 06/27/16 Pantoprazole Sodium 40 mg PO DAILY 06/27/16 Pregabalin [Lyrica] 150 mg PO BID 06/27/16 Solifenacin Succinate [Vesicare] 10 mg PO DAILY 06/27/16 traMADol HCL [Ultram] 50 mg PO QID PRN 07/03/16 Folic Acid 2 mg PO DAILY 10/03/16 Bisacodyl [Laxative] 5 mg PO DAILY PRN 02/12/17 Cyproheptadine HCl 4 - 8 mg PO TID PRN 02/12/17 Lidocaine [Lidoderm 5%] 2 patch TP DAILY PRN 02/12/17 [place]-3S/Dha/Epa/Fish Oil [[place]-3 Fish Oil 1,000 mg Sfgl] 1 each PO DAILY 02/12 Ascorbic Acid [Vitamin C] 500 mg PO DAILY 04/10/17 Aspirin [Aspirin Enteric Coated] 81 mg PO DAILY 04/10/17 Clotrimazole/Betamethasone Dip [Clotrimazole-Betamethasone Crm] 1 appl TP DAILY 04/10/17 Fenofibrate Nanocrystallized [Tricor] 145 mg PO DAILY 04/10/17 Multivitamin with Minerals [Multivitamins with Minerals] 1 each PO DAILY Potassium Chloride [Klor-Con 10] 30 meq PO TID 04/10/17 Spironolact/Hydrochlorothiazid [Aldactazide 25-25] 0.5 tab PO DAILY 04/10/17 Cefdinir [Omnicef] 300 mg PO Q12H #20 cap 04/23/17 Furosemide [Lasix] 80 mg PO DAILY #30 tab 04/23/17
[2017-04-23] MEDS: PREGABALIN 75 MG CAPSULE PO SCH (08:04)
[2017-04-23] MEDS ORDERED: MULTIVITAMIN/IRON/FOLIC ACID 1 TAB TABLET PO SCH (09:00)
[2017-04-23] MEDS ORDERED: FOLIC ACID 1 MG TABLET PO SCH (09:00)
[2017-04-23] MEDS ORDERED: CHOLECALCIFEROL 1,000 UNIT CAPSULE PO SCH (09:00)
[2017-04-23] MEDS ORDERED: ASPIRIN 81 MG TABLET.DR PO SCH (09:00)
[2017-04-23] MEDS ORDERED: SOLIFENACIN SUCCINATE 10 MG TABLET PO SCH (09:00)
[2017-04-23] MEDS ORDERED: OMEGA-3 FATTY ACIDS 1 CAP CAPSULE PO SCH (09:00)
[2017-04-23] MEDS ORDERED: FENOFIBRATE,MICRONIZED 134 MG CAPSULE PO SCH (09:00)
[2017-04-23] MEDS ORDERED: ASCORBIC ACID 500 MG TABLET PO SCH (09:00)
== END 2017-04-23 09:40 | disposition home or self-care (01) ==
LOC: ER 11:45 → MS 13:23
PROVIDERS: ADMIT Family Medicine; ATTEND Allergy & Immunology
DX: D64.9 Anemia, unspecified (principal); N18.5 Chronic kidney disease, stage 5; D63.1 Anemia in chronic kidney disease; J30.9 Allergic rhinitis, unspecified; F17.210 Nicotine dependence, cigarettes, uncomplicated; L03.116 Cellulitis of left lower limb; D49.4 Neoplasm of unspecified behavior of bladder
CPT/HCPCS: 36415; 36430; 80053; 85014; 85018; 85025; 86850; 86900; 96365; 96375; 99284; G0378; P9016